=== PATIENT | female | born 1975 | race American Indian/Alaskan Native ===

== ENCOUNTER 2016-11-04 17:47 | Emergency (ER) | payer MEDICAID ==
[2016-11-04 18:01] VITALS: BMI 40.3
[2016-11-04 18:07] VITALS: TEMP 98.7
[2016-11-04] MEDS ORDERED: Sodium Chloride 0.9% 500 ML IV STA (18:42)
[2016-11-04] MEDS ORDERED: DiphenhydrAMINE 50 mg/ml Inj IVP STA (18:43)
[2016-11-04 19:56] LABS: BASO # 0.02 K/mm3 (0.0-2.0); BASO % 0.3 % (0.0-3.0); EOS # 0.1 (0.0-0.7); EOS % 1.7 % (1.5-5.0); GRAN # 2.56 (1.4-6.5); GRAN % 37.1 % (50.0-68.0); HEMOGLOBIN 11.7 gm/dL (12.0-16.0); LYMPH # 3.9 (1.2-3.4); LYMPH % 55.6 % (22.0-35.0); MEAN CELL VOLUME 87.5 fL (80.0-105.0); MEAN CORPUSCULAR HEMOGLOBIN 27.7 pg (25.0-35.0); MEAN CORPUSCULAR HGB CONC 31.6 g/dl (31.0-37.0); MEAN PLATELET VOLUME 9.4 fl (7.0-11.0); MONO # 0.4 (0.1-0.6); MONO % 5.3 % (1.0-6.0); PLATELET COUNT 381 10^3/uL (120.0-450.0); RBC 4.23 10^6/uL (3.5-6.1); RED CELL DISTRIBUTION WIDTH 14.8 % (11.5-14.5); WHITE BLOOD COUNT 6.9 10^3/ul (4.5-11.0)
[2016-11-04 19:59] LABS: ALB/GLOB RATIO 1.1 (1.1-1.8); ALBUMIN 4.2 g/dL (3.0-4.8); ALT/SGPT 27 U/L (7-56); AST/SGOT 35 U/L (15-39); BLOOD UREA NITROGEN 10 mg/dL (7-21); CALCIUM 9.2 mg/dL (8.4-10.5); GFR AFRICAN-AMERICAN > 60; GFR NON-AFRICAN AMERICAN > 60
[2016-11-04] MEDS ORDERED: Potassium Chloride 20 mEq/15 ml LIQ UD PO STA (20:23)
--- NOTE | 2016-11-04 20:32 | ED PDOC ---
Arrival/HPI - General Chief Complaint: Headache Time Seen by Provider: 11/04/16 18:13 Historian: Patient - History of Present Illness Narrative History of Present Illness (Text): 11/04/16 20:23 Patient with past medical history of hypertension and migraine headaches, reports gradual onset of constant throbbing headache to her forehead x 3 days, states that the headache was initially mild however this morning the headache had become more intense, is worse when she bends down and then stands up, reports taking Tylenol with no relief. Patient reports she initially thought that the headache was related to her blood pressure, but reports taking her blood pressure medicine prior to arrival. Patient reports having similar headaches in the past, states that when she typically gets her migraine headache it is usually one sided, which is different with this episode prompting ER visit. She further adds that she was seen at [facility] in the end of August for similar headache, was giving medication however no other diagnostic testing was done. She reports never having any imaging studies of her head. Otherwise: (-) thunderclap headache, (-) worse headache of life, (-) nausea, (-) vomiting, (+) photophobia, (-) phonophobia, (-) URI symptoms, (-) fever, (-) trauma, (-) subjective neurologic symptoms. PMD Travis Past Medical History - Provider Review Nursing Documentation Reviewed: Yes - Infectious Disease Hx of Infectious Diseases: None - Cardiac Hx Cardiac Disorders: Yes Hx Hypertension: Yes - Pulmonary Hx Respiratory Disorders: No - Neurological Hx Neurological Disorder: No - HEENT Hx HEENT Disorder: No - Renal Hx Renal Disorder: No - Endocrine/Metabolic Hx Endocrine Disorders: No - Hematological/Oncological Hx Blood Disorders: No - Integumentary Hx Dermatological Disorder: No - Musculoskeletal/Rheumatological Hx Musculoskeletal Disorders: No - Gastrointestinal Hx Gastrointestinal Disorders: No - Genitourinary/Gynecological Hx Genitourinary Disorders: No - Psychiatric Hx Psychophysiologic Disorder: No Hx Substance Use: No - Surgical History Hx Orthopedic Surgery: Yes - Anesthesia Hx Anesthesia: No - Suicidal Assessment Feels Threatened In Home Enviroment: No Family/Social History - Physician Review Nursing Documentation Reviewed: Yes Family/Social History: No Known Family HX Smoking Status: Never Smoked Hx Alcohol Use: Yes Hx Substance Use: No Allergies/Home Meds Allergies/Adverse Reactions: Allergies No Known Allergies Allergy (Verified 11/04/16 18:01) Home Medications: Home Meds Medication Instructions Recorded Confirmed Hydrochlorothiazide [HCTZ] 25 mg PO DAILY 08/01/15 11/04/16 amLODIPine [Norvasc] 10 mg PO DAILY 03/27/16 11/04/16 Review of Systems - Review of Systems Constitutional: Normal. absent: Fatigue, Weight Change, Fevers Respiratory: Normal. absent: SOB, Cough, Sputum Cardiovascular: Normal. absent: Chest Pain, Palpitations, Edema Gastrointestinal: Normal. absent: Abdominal Pain, Stool Changes, Appetite Changes Musculoskeletal: Normal. absent: Arthralgias, Back Pain, Neck Pain Skin: Normal. absent: Rash, Pruritis, Skin Lesions Neurological: Normal, Headache. absent: Dizziness, Focal Weakness Physical Exam - Physical Exam Narrative Physical Exam (Text): 11/04/16 20:32 GENERAL APPEARANCE: Patient is awake, alert, oriented x 3, in mild painful distress. SKIN: Warm, dry; (-) cyanosis; (-) rash. HEAD: (-) scalp swelling or tenderness, (-) temporal artery tenderness. EYES: (-) conjunctival pallor, (-) scleral icterus. ENMT: (-) sinus tenderness; mucous membranes moist. NECK: (-) tenderness, (-) stiffness, (-) meningismus, (-) lymphadenopathy. CHEST AND RESPIRATORY: (-) rales, (-) rhonchi, (-) wheezes; breath sounds equal bilaterally. HEART AND CARDIOVASCULAR: (-) irregularity; (-) murmur, (-) gallop. ABDOMEN AND GI: Soft; (-) tenderness. EXTREMITIES: (-) deformity. NEURO AND PSYCH: Mental status as above. 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 Strength and DTRs symmetric. Babinski normal bilaterally. Vital Signs Temp Pulse Resp BP Pulse Ox 11/04/16 19:15 93 H 18 147/91 H 99 11/04/16 19:12 78 18 156/65 H 99 11/04/16 18:05 98.7 F 76 16 144/101 H 98 Medical Decision Making ED Course and Treatment: 11/04/16 20:33 41 yo F w/ past medical history of hypertension and migraine headaches, reports gradual onset of constant throbbing headache to her forehead x 3 days. Plan: -- Labs -- IV fluids -- Beta Quant -- Reglan IV / Benadryl IV -- Reassess and disposition -- CT HEAD WITHOUT CONTRAST 11/04/16 20:10 On reevaluation, the patient is laying in bed in no acute distress, patient reports that her headache is improving. Lab results reviewed. Patient still pending CT head. 11/04/16 21:45 CT head results reviewed and shows no acute findings. CT results discussed with the patient in great detail. On reevaluation, patient remains awake, alert, oriented 3. Repeat neurologic exam shows no acute focal findings. Patient reports significant resolution of her headache. Based on history, exam and diagnostic results plan will be for outpatient follow-up with PMD. Patient advised to follow up with her primary care physician in 1-2 days without fail. Advised to take medication as prescribed. Return to the emergency room at any time for any new or worsening symptoms.Patient states she fully agrees with and understands discharge instructions. States that she agrees with the plan and disposition. Verbalized and repeated discharge instructions and plan. I have given the patient opportunity to ask any additional questions. - Lab Interpretations Lab Results: 11/04/16 19:00 11/04/16 19:00 Lab Results 11/04/16 19:00: Beta HCG, Quant < 2.39 11/04/16 19:00: Sodium 139, Potassium 3.1 L, Chloride 102, Carbon Dioxide 25, Anion Gap 15, BUN 10, Creatinine 0.9, Est GFR ( Amer) > 60, Est GFR (Non- Af Amer) > 60, Random Glucose 107, Calcium 9.2, Total Bilirubin 0.6, AST 35, ALT 27, Alkaline Phosphatase 55, Total Protein 8.1, Albumin 4.2, Globulin 3.9, Albumin/Globulin Ratio 1.1 11/04/16 19:00: WBC 6.9, RBC 4.23, Hgb 11.7 L, Hct 37.0, MCV 87.5, MCH 27.7, MCHC 31.6, RDW 14.8 H, Plt Count 381, MPV 9.4, Gran % 37.1 L, Lymph % (Auto) 55.6 H, Pine % (Auto) 5.3, Eos % (Auto) 1.7, Baso % (Auto) 0.3, Gran # 2.56, Lymph # 3.9 H, Pine # 0.4, Eos # 0.1, Baso # 0.02 I have reviewed the lab results: Yes (K 3.1 Pt given Kcl 40 mEq Po) - RAD Interpretation Narrative RAD Interpretations (Text): 11/04/16 22:24 CT head w/o contrast: FINDINGS: Brain: No intracranial hemorrhage. No mass. No definite edema. Ventricles: No hydrocephalus. Bones/joints: No acute fracture. Soft tissues: Unremarkable. Sinuses: No acute sinusitis. Mastoid air cells: No mastoid effusion. Orbits: Unremarkable as visualized. IMPRESSION: 1. No acute intracranial abnormality. Dictated and Authenticated by: Renzo Mondragon MD 11/04/2016 9:40 PM Eastern Time ([place] & [place]) Radiology Orders: 11/04/16 19:26 HEAD W/O CONTRAST [CT] Stat - Medication Orders Current Medication Orders: Discontinued Medications Diphenhydramine HCl (Benadryl) 25 mg IVP STAT STA Stop: 11/04/16 18:44 Last Admin: 11/04/16 19:42 Dose: 25 mg Sodium Chloride (Sodium Chloride 0.9%) 500 mls @ 1,000 mls/hr IV .Q30M STA Stop: 11/04/16 19:11 Last Admin: 11/04/16 19:43 Dose: 1,000 mls/hr Metoclopramide HCl (Reglan) 10 mg IVP STAT STA Stop: 11/04/16 18:43 Last Admin: 11/04/16 19:42 Dose: 10 mg Potassium Chloride (Potassium Chloride Oral Soln) 40 meq PO STAT STA Stop: 11/04/16 20:24 Last Admin: 11/04/16 21:43 Dose: 40 meq - PA / 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 Disposition/Present on Arrival - Present on Arrival Any Indicators Present on Arrival: No History of DVT/PE: No History of Uncontrolled Diabetes: No Urinary Catheter: No History of Decub. Ulcer: No History Surgical Site Infection Following: None - Disposition Have Diagnosis and Disposition been Completed?: Yes Diagnosis: Headache Disposition: HOME/ ROUTINE Disposition Time: 22:00 Patient Plan: Discharge Patient Problems: Current Active Problems Problem Status Onset Headache Acute Condition: IMPROVED Discharge Instructions (ExitCare): Acute Headache (ED) Print Language: MOHAWK Additional Instructions: Thank you for letting us take care of you today. You were treated for headache. The emergency medical care you received today was directed at your acute symptoms. If you were prescribed any medication, please fill it and take as directed. It may take several days for your symptoms to resolve. Return to the Emergency Department if your symptoms worsen, do not improve, or if you have any other problems. Please contact your doctor in 2 days for re-evaluation and follow up. Bring any paperwork you were given at discharge with you along with any medications you are taking to your follow up visit. Our treatment cannot replace ongoing medical care by a primary care provider (PCP) outside of the emergency department. Thank you for allowing the [facility] team to be part of your care today. Prescriptions: Metoclopramide HCl [Reglan] 10 mg PO QID PRN #20 tablet PRN Reason: Headache Forms: [employer] (Azeri), WORK NOTE
--- NOTE | 2016-11-04 21:41 | CT ---
EXAM: CT Head Without Intravenous Contrast CLINICAL HISTORY: 41 years old, female; Pain; Headache TECHNIQUE: Axial computed tomography images of the head/brain without intravenous contrast. This CT exam was performed using one or more of the following dose reduction techniques: automated exposure control, adjustment of the mA and/or kV according to patient size, and/or use of iterative reconstruction technique. COMPARISON: No relevant prior studies available. FINDINGS: Brain: No intracranial hemorrhage. No mass. No definite edema. Ventricles: No hydrocephalus. Bones/joints: No acute fracture. Soft tissues: Unremarkable. Sinuses: No acute sinusitis. Mastoid air cells: No mastoid effusion. Orbits: Unremarkable as visualized. IMPRESSION: 1. No acute intracranial abnormality.
[2016-11-04 23:03] VITALS: BP 145/89; PULSE 89; RESP 17; O2SAT 100
== END 2016-11-04 23:03 | disposition home or self-care (01) ==
LOC: ED 17:47
DX: R51 Headache (principal)
CPT/HCPCS: 70450; 80053; 84702; 85025; 96374; 96375; 99285; J1200; J2765; J7040

== ENCOUNTER 2017-04-10 18:23 | Emergency (ER) | payer MEDICAID ==
[2017-04-10 18:24] VITALS: BMI 40.3
[2017-04-10 18:46] VITALS: RESP 16; O2SAT 100
--- NOTE | 2017-04-10 20:13 | ED PDOC ---
Arrival/HPI - General Chief Complaint: Headache Time Seen by Provider: 04/10/17 19:28 Historian: Patient - History of Present Illness Narrative History of Present Illness (Text): 04/10/17 20:12 A 41 year old female, whose past medical history includes hypertension, presents to the emergency department complaining of a slight headache located on the top of her head since today. Patient reports her blood pressure elevated while at home; she notes 150 systolic. Patient denies any dizziness, visual changes, neck pain, fever, chills, nausea, vomiting, abdominal pain, back pain, chest pain, shortness of breath, cough or any other complaints. PMD: Dr. Mendoza Time/Duration: Other (today) Symptom Course: Unchanged Quality: Other Context: Home Past Medical History - Provider Review Nursing Documentation Reviewed: Yes - Infectious Disease Hx of Infectious Diseases: None - Reproductive Menopause: No - Cardiac Hx Cardiac Disorders: Yes Hx Hypertension: Yes - Pulmonary Hx Respiratory Disorders: No - Neurological Hx Neurological Disorder: No - HEENT Hx HEENT Disorder: No - Renal Hx Renal Disorder: No - Endocrine/Metabolic Hx Endocrine Disorders: No - Hematological/Oncological Hx Blood Disorders: No - Integumentary Hx Dermatological Disorder: No - Musculoskeletal/Rheumatological Hx Musculoskeletal Disorders: No - Gastrointestinal Hx Gastrointestinal Disorders: No - Genitourinary/Gynecological Hx Genitourinary Disorders: No - Psychiatric Hx Psychophysiologic Disorder: No Hx Substance Use: No - Surgical History Hx Orthopedic Surgery: Yes - Anesthesia Hx Anesthesia: No - Suicidal Assessment Feels Threatened In Home Enviroment: No Family/Social History - Physician Review Nursing Documentation Reviewed: Yes Family/Social History: No Known Family HX Smoking Status: Never Smoked Hx Alcohol Use: Yes Hx Substance Use: No Allergies/Home Meds Allergies/Adverse Reactions: Allergies No Known Allergies Allergy (Verified 04/10/17 18:46) Home Medications: Home Meds Medication Instructions Recorded Confirmed Hydrochlorothiazide [HCTZ] 25 mg PO DAILY 08/01/15 04/10/17 amLODIPine [Norvasc] 10 mg PO DAILY 03/27/16 04/10/17 Review of Systems - Physician Review All systems were reviewed & negative as marked: Yes - Review of Systems Constitutional: absent: Fevers, Night Sweats Eyes: absent: Vision Changes Respiratory: absent: SOB, Cough Cardiovascular: absent: Chest Pain Gastrointestinal: absent: Abdominal Pain, Nausea, Vomiting Musculoskeletal: absent: Back Pain, Neck Pain Neurological: Headache. absent: Dizziness Physical Exam Vital Signs Reviewed: Yes Vital Signs Temp Pulse Resp BP Pulse Ox 04/10/17 19:57 134/85 04/10/17 18:42 98.9 F 72 16 154/115 H 100 Temperature: Afebrile Blood Pressure: Hypertensive Pulse: Regular Respiratory Rate: Normal Appearance: Positive for: Well-Appearing, Non-Toxic, Comfortable Pain Distress: None Mental Status: Positive for: Alert and Oriented X 3 - Systems Exam Head: Present: Atraumatic, Normocephalic Pupils: Present: PERRL Extroacular Muscles: Present: EOMI Conjunctiva: Present: Normal Ears: Present: NORMAL TM Mouth: Present: Moist Mucous Membranes Pharnyx: Present: Normal Neck: Present: Normal Range of Motion. No: Meningeal Signs Respiratory/Chest: Present: Clear to Auscultation, Good Air Exchange. No: Respiratory Distress, Accessory Muscle Use Cardiovascular: Present: Regular Rate and Rhythm, Normal S1, S2. No: Murmurs Abdomen: Present: Normal Bowel Sounds. No: Tenderness, Distention, Peritoneal Signs Back: Present: Normal Inspection Upper Extremity: Present: Normal Inspection. No: Cyanosis, Edema Lower Extremity: Present: Normal Inspection. No: Edema Neurological: Present: GCS=15, CN II-XII Intact, Speech Normal, Motor Func Grossly Intact, Normal Sensory Function Skin: Present: Warm, Dry, Normal Color. No: Rashes Psychiatric: Present: Alert, Oriented x 3, Normal Insight, Normal Concentration Medical Decision Making ED Course and Treatment: 04/10/17 20:12 Impression: A 41 year old female with a headache Plan: -- Motrin -- Reassess and disposition Progress Notes: 04/10/17 21:49 Pt. with headache relief following treatment in ED. - Medication Orders Current Medication Orders: Discontinued Medications Ibuprofen (Motrin Tab) 600 mg PO STAT STA Stop: 04/10/17 19:38 Last Admin: 04/10/17 19:55 Dose: 600 mg MAR Pain/Vitals Document 04/10/17 19:55 AB (Rec: 04/10/17 19:56 AB [facility]-[id number]) Pain Reassessment Is This A Pain ReAssessment? Yes Sleep Is patient sleeping during reassessment? No Presence of Pain Presence of Pain Yes Pain Scale Used Pain Scale Used Numeric - Scribe Statement The provider has reviewed the documentation as recorded by the Scribe Diamante Meyer Provider Scribe Attestation: All medical record entries made by the Scribe were at my direction and personally dictated by me. I have reviewed the chart and agree that the record accurately reflects my personal performance of the history, physical exam, medical decision making, and the department course for this patient. I have also personally directed, reviewed, and agree with the discharge instructions and disposition. Disposition/Present on Arrival - Present on Arrival Any Indicators Present on Arrival: No History of DVT/PE: No History of Uncontrolled Diabetes: No Urinary Catheter: No History of Decub. Ulcer: No History Surgical Site Infection Following: None - Disposition Have Diagnosis and Disposition been Completed?: Yes Diagnosis: Headache Disposition: HOME/ ROUTINE Disposition Time: 21:48 Patient Plan: Discharge Condition: STABLE Discharge Instructions (ExitCare): Tension Headache (ED) Additional Instructions: Rest/advil as directed/follow up with your doctor this week Referrals: Freddie Robles MD [Primary Care Provider] - Follow up with primary Forms: [employer] (Comoran)
[2017-04-10 22:12] VITALS: BP 130/80; PULSE 80; TEMP 97.9
== END 2017-04-10 22:13 | disposition home or self-care (01) ==
LOC: ED 18:23
DX: R51 Headache (principal); I10 Essential (primary) hypertension

== ENCOUNTER 2017-05-30 22:28 | Emergency (ER) | payer OTHER, MEDICAID ==
[2017-05-30 22:30] VITALS: BMI 39.4
[2017-05-30 22:31] VITALS: BP 148/89; TEMP 97.9; O2SAT 99
[2017-05-30 22:37] VITALS: PULSE 84; RESP 18
--- NOTE | 2017-05-30 22:57 | ED PDOC ---
Arrival/HPI - General Chief Complaint: Dizziness/Lightheaded Time Seen by Provider: 05/30/17 22:40 Historian: Patient - History of Present Illness Narrative History of Present Illness (Text): 05/30/17 22:54 41yo female with history of anxiety who present with complaint of anxiety. She reports dizziness, palpitations and anxious. States these are her symptoms with anxiety. She states she was on Xanax un till few months ago. States she threw out the medication because she didn't think she needs it. She tried to get the prescription yesterday, but she was told to see her PMD physically for the prescription. she is also requesting a test. states her LMP was in April. Denies fever, abdominal pain, chest pain, nausea, vomiting, any other complaint. Past Medical History - Provider Review Nursing Documentation Reviewed: Yes - Infectious Disease Hx of Infectious Diseases: None - Cardiac Hx Cardiac Disorders: Yes Hx Hypertension: Yes - Pulmonary Hx Respiratory Disorders: No - Neurological Hx Neurological Disorder: No - HEENT Hx HEENT Disorder: No - Renal Hx Renal Disorder: No - Endocrine/Metabolic Hx Endocrine Disorders: No - Hematological/Oncological Hx Blood Disorders: No - Integumentary Hx Dermatological Disorder: No - Musculoskeletal/Rheumatological Hx Musculoskeletal Disorders: No - Gastrointestinal Hx Gastrointestinal Disorders: No - Genitourinary/Gynecological Hx Genitourinary Disorders: No - Psychiatric Hx Psychophysiologic Disorder: No Hx Substance Use: No - Surgical History Hx Orthopedic Surgery: Yes - Anesthesia Hx Anesthesia: No - Suicidal Assessment Feels Threatened In Home Enviroment: No Family/Social History - Physician Review Nursing Documentation Reviewed: Yes Family/Social History: Unknown Family HX Smoking Status: Never Smoked Hx Alcohol Use: Yes Hx Substance Use: No Allergies/Home Meds Allergies/Adverse Reactions: Allergies No Known Allergies Allergy (Verified 05/30/17 22:30) Home Medications: Home Meds Medication Instructions Recorded Confirmed Hydrochlorothiazide [HCTZ] 25 mg PO DAILY 08/01/15 05/30/17 amLODIPine [Norvasc] 10 mg PO DAILY 03/27/16 05/30/17 Review of Systems - Physician Review All systems were reviewed & negative as marked: Yes - Review of Systems Constitutional: Normal Eyes: Normal ENT: Normal Respiratory: Normal Cardiovascular: Palpitations Gastrointestinal: Normal Genitourinary Female: Normal Musculoskeletal: Normal Skin: Normal Neurological: Normal Endocrine: Normal Hemo/Lymphatic: Normal Psychiatric: Anxiety Physical Exam Vital Signs Reviewed: Yes Vital Signs Temp Pulse Resp BP Pulse Ox 05/30/17 22:33 97.9 F 84 18 148/89 99 05/30/17 22:30 97.9 F 85 20 148/89 99 Temperature: Afebrile Blood Pressure: Normal Pulse: Regular Respiratory Rate: Normal Appearance: Positive for: Well-Appearing, Non-Toxic, Comfortable Pain Distress: None Mental Status: Positive for: Alert and Oriented X 3 Finger Stick Blood Glucose: 101 - Systems Exam Head: Present: Atraumatic, Normocephalic Pupils: Present: PERRL Extroacular Muscles: Present: EOMI Conjunctiva: Present: Normal Mouth: Present: Moist Mucous Membranes Neck: Present: Normal Range of Motion Respiratory/Chest: Present: Clear to Auscultation, Good Air Exchange. No: Respiratory Distress, Accessory Muscle Use Cardiovascular: Present: Regular Rate and Rhythm, Normal S1, S2. No: Murmurs Abdomen: Present: Normal Bowel Sounds. No: Tenderness, Distention, Peritoneal Signs Back: Present: Normal Inspection Upper Extremity: Present: Normal Inspection. No: Cyanosis, Edema Lower Extremity: Present: Normal Inspection. No: Edema Neurological: Present: GCS=15, CN II-XII Intact, Speech Normal Skin: Present: Warm, Dry, Normal Color. No: Rashes Psychiatric: Present: Alert, Oriented x 3, Normal Insight, Normal Concentration Medical Decision Making ED Course and Treatment: 05/30/17 23:10 PT was comfortable in ED. Her Upreg was negative. Result was DW the pt. She was advised that she will not be given anxiolytics at this time. She was referred to her PMD/OB. Disposition/Present on Arrival - Present on Arrival Any Indicators Present on Arrival: No History of DVT/PE: No History of Uncontrolled Diabetes: No Urinary Catheter: No History of Decub. Ulcer: No History Surgical Site Infection Following: None - Disposition Have Diagnosis and Disposition been Completed?: Yes Diagnosis: , Anxiety Disposition: HOME/ ROUTINE Disposition Time: 23:00 Patient Plan: Discharge Patient Problems: Current Active Problems Problem Status Onset Anxiety Acute Acute Condition: STABLE Discharge Instructions (ExitCare): Anxiety, Adult (DC) Additional Instructions: Follow up with your Doctor/OB Return to ED for any new symptoms Referrals: Freddie Robles MD [Primary Care Provider] - Follow up with primary Forms: [employer] (Mexican)
== END 2017-05-30 23:08 | disposition home or self-care (01) ==
LOC: ED 22:28
DX: O99.340 Other mental disorders complicating pregnancy, unspecified trimester (principal); F41.9 Anxiety disorder, unspecified; Z3A.00 Weeks of gestation of pregnancy not specified

== ENCOUNTER 2017-10-07 23:46 | Emergency (ER) | payer MEDICAID, OTHER ==
[2017-10-07 23:56] VITALS: TEMP 98.9; BMI 38.7
--- NOTE | 2017-10-08 00:11 | ED PDOC ---
Arrival/HPI - General Historian: Patient - History of Present Illness Time/Duration: 1-3 hours Symptom Onset: Sudden Activities at Onset: Rest Context: Home - General Time Seen by Provider: 10/07/17 23:55 - History of Present Illness Narrative History of Present Illness (Text): 10/08/17 00:16 This is a 42 year old female with PMH of HT and anxiety presenting to the ED for palpitations and fast heart rate 2 hours ago. Symptoms woke patient up from sleep and is associated with mild SOB. Patient had gariatric bariatric sleeve surgury last week on October 01 and has been on a liquid diet since then. Patient denies having similar symptoms in past. Heart rate is 101. Well's score is currently 3. Denies chest pain, headaches, abdominal pain, fevers and chills. ( Evonne Shields) Past Medical History - Provider Review Nursing Documentation Reviewed: Yes - Infectious Disease Hx of Infectious Diseases: None - Cardiac Hx Cardiac Disorders: Yes Hx Hypertension: Yes - Pulmonary Hx Respiratory Disorders: No - Neurological Hx Neurological Disorder: No - HEENT Hx HEENT Disorder: No - Renal Hx Renal Disorder: No - Endocrine/Metabolic Hx Endocrine Disorders: No - Hematological/Oncological Hx Blood Disorders: No - Integumentary Hx Dermatological Disorder: No - Musculoskeletal/Rheumatological Hx Musculoskeletal Disorders: No - Gastrointestinal Hx Gastrointestinal Disorders: No - Genitourinary/Gynecological Hx Genitourinary Disorders: No - Psychiatric Hx Psychophysiologic Disorder: No Hx Substance Use: No - Surgical History Hx Orthopedic Surgery: Yes - Anesthesia Hx Anesthesia: No - Suicidal Assessment Feels Threatened In Home Enviroment: No Family/Social History - Physician Review Nursing Documentation Reviewed: Yes Family/Social History: Unknown Family HX Smoking Status: Never Smoked Hx Alcohol Use: Yes Hx Substance Use: No Allergies/Home Meds Allergies/Adverse Reactions: Allergies No Known Allergies Allergy (Verified 10/07/17 23:55) Home Medications: Home Meds Medication Instructions Recorded Confirmed amLODIPine [Norvasc] 5 mg PO DAILY 03/27/16 10/07/17 Acetaminophen/Codeine 1 tsp PO Q6H PRN 10/07/17 10/07/17 [Tylenol/Codeine elixir] Sucralfate [Carafate Oral Susp] 10 ml PO BID PRN 10/07/17 10/07/17 Ursodiol [Actigall] 300 mg PO BID 10/07/17 10/07/17 Review of Systems - Physician Review All systems were reviewed & negative as marked: Yes - Review of Systems Constitutional: Normal Eyes: Normal ENT: Normal Respiratory: Normal, SOB. absent: Cough Cardiovascular: Chest Pain, Palpitations. absent: Edema, Syncope Gastrointestinal: Normal Genitourinary Female: Normal Musculoskeletal: Normal Skin: Normal Neurological: Normal Endocrine: Normal Hemo/Lymphatic: Normal Psychiatric: Normal. absent: Anxiety Physical Exam Vital Signs Reviewed: Yes Temperature: Afebrile Blood Pressure: Hypertensive Pulse: Tachycardic Respiratory Rate: Normal Appearance: Positive for: Well-Appearing, Non-Toxic, Comfortable Pain Distress: None Mental Status: Positive for: Alert and Oriented X 3 - Systems Exam Head: Present: Atraumatic, Normocephalic Pupils: Present: PERRL Extroacular Muscles: Present: EOMI Conjunctiva: Present: Normal Mouth: Present: Moist Mucous Membranes Neck: Present: Normal Range of Motion Respiratory/Chest: Present: Clear to Auscultation, Good Air Exchange. No: Respiratory Distress, Accessory Muscle Use Cardiovascular: Present: Normal S1, S2, Peripheal Pulses Present, Tachycardic. No: Murmurs, Irregular Rhythm Abdomen: No: Tenderness, Distention, Peritoneal Signs Back: Present: Normal Inspection Upper Extremity: Present: Normal Inspection. No: Cyanosis, Edema Lower Extremity: Present: Normal Inspection. No: Edema Neurological: Present: Speech Normal, Motor Func Grossly Intact, Normal Sensory Function Skin: Present: Warm, Dry, Normal Color. No: Rashes Psychiatric: Present: Alert, Oriented x 3, Normal Insight, Normal Concentration Vital Signs Temp Pulse Resp BP Pulse Ox 10/08/17 03:10 85 18 117/73 100 10/08/17 02:10 85 17 115/67 100 10/07/17 23:55 98.9 F 101 H 21 155/88 H 97 Medical Decision Making ED Course and Treatment: Impression: Pt seen and evaluated with chief medical physicist. Aware and agree with HPI, clinical findings, plan, and management. Pt, whose past medical history includes recent gastric sleeve on 10/01/17, hypertension and anxiety, presented for palpitations rapid heart rate, and mild shortness of breath tonight. Plan: -- EKG -- Labs, troponin, D-dimer -- Reassess and disposition (Otis Martinez) 10/08/17 00:22 Impression: This is a 42 year old female with PMH of anxiety presenting to the ER for palpitations and SOB that began 2 hours ago. Plan: -EKG -CBC, CMP -Troponins, D-dimer Progress: EKG: rate of 96, normal sinus rhythm, pr interval of 154, QRS 82ms. 10/08/17 01:20 D-dimer is elevated, CTA ordered. 10/08/17 04:19 CTA is negative for PE. Patient is resting comfortably and has no complaints at this time. Vitals are stable. (Evonne Shields) - Lab Interpretations Lab Results: 10/08/17 00:23 10/08/17 00:23 Lab Results 10/08/17 00:35: D-Dimer, Quantitative 2847 H 10/08/17 00:23: Sodium 140, Potassium 3.6, Chloride 104, Carbon Dioxide 21, Anion Gap 20, BUN 17, Creatinine 0.9, Est GFR ( Amer) > 60, Est GFR (Non- Af Amer) > 60, Random Glucose 94, Calcium 9.3, Total Bilirubin 2.0 H, AST 33, ALT 60 H, Alkaline Phosphatase 63, Troponin I < 0.01, Total Protein 8.4 H, Albumin 4.4, Globulin 4.0, Albumin/Globulin Ratio 1.1 10/08/17 00:23: WBC 9.3 D, RBC 4.55, Hgb 12.7, Hct 37.7, MCV 82.9, MCH 27.9, MCHC 33.7, RDW 14.7 H, Plt Count 395, MPV 9.3, Gran % 41.6 L, Lymph % (Auto) 49.0 H, [place] % (Auto) 7.2 H, Eos % (Auto) 2.0, Baso % (Auto) 0.2, Gran # 3.86, Lymph # (Auto) 4.6 H, [place] # (Auto) 0.7 H, Eos # (Auto) 0.2, Baso # (Auto) 0.02 - RAD Interpretation Radiology Orders: 10/08/17 01:14 ANGIO CHEST PE PROTOCOL [CT] Stat - Medication Orders Current Medication Orders: Discontinued Medications Lorazepam (Ativan) 2 mg IVP ONCE ONE PRN Reason: Protocol Stop: 10/08/17 01:37 Last Admin: 10/08/17 01:44 Dose: 2 mg IVP Administration Document 10/08/17 01:44 CNR (Rec: 10/08/17 01:44 CNR [id number]) Charges for Administration # of IVP Administrations 1 Wells Criteria for PE - Wells Criteria for Pulmonary Embolism Clinical Signs and Symptoms of DVT: No P.E is #1 Diagnosis, or Equally Likely: No Heart Rate >100: Yes Immobilization at least 3 days;Surgery previous 4 weeks: Yes Previous, objectively diagnosed PE or DVT: No Hemoptysis: No Malignancy w/treatment within 6 months, or palliative: No Total Score: 3.0 - PA / OILING MACHINE OPERATOR / Resident Statement MD/DO has reviewed & agrees with the documentation as recorded. MD/DO has examined the patient and agrees with the treatment plan. Disposition/Present on Arrival - Present on Arrival Any Indicators Present on Arrival: No History of DVT/PE: No History of Uncontrolled Diabetes: No Urinary Catheter: No History of Decub. Ulcer: No History Surgical Site Infection Following: None - Disposition Have Diagnosis and Disposition been Completed?: Yes Disposition Time: 04:30 Patient Plan: Discharge - Disposition Diagnosis: Palpitations Disposition: HOME/ ROUTINE Condition: GOOD Discharge Instructions (ExitCare): Palpitations (DC) Additional Instructions: Follow up with primary care doctor
[2017-10-08 00:44] LABS: ALB/GLOB RATIO 1.1 (1.1-1.8); ALBUMIN 4.4 g/dL (3.0-4.8); ALT/SGPT 60 U/L (7-56); AST/SGOT 33 U/L (14-36); BASO # 0.02 K/mm3 (0.0-2.0); BASO % 0.2 % (0.0-3.0); BLOOD UREA NITROGEN 17 mg/dL (7-21); CALCIUM 9.3 mg/dL (8.4-10.5); EOS # 0.2 (0.0-0.7); GFR AFRICAN-AMERICAN > 60; GFR NON-AFRICAN AMERICAN > 60; GRAN # 3.86 (1.4-6.5); GRAN % 41.6 % (50.0-68.0); HEMOGLOBIN 12.7 g/dL (12.0-16.0); LYMPH # 4.6 (1.2-3.4); MEAN CELL VOLUME 82.9 fl (80.0-105.0); MEAN CORPUSCULAR HEMOGLOBIN 27.9 pg (25.0-35.0); MEAN CORPUSCULAR HGB CONC 33.7 g/dl (31.0-37.0); MEAN PLATELET VOLUME 9.3 fl (7.0-11.0); MONO # 0.7 (0.1-0.6); MONO % 7.2 % (1.0-6.0); RBC 4.55 10^6/uL (3.5-6.1); RED CELL DISTRIBUTION WIDTH 14.7 % (11.5-14.5); WHITE BLOOD COUNT 9.3 10^3/ul (4.5-11.0)
[2017-10-08 00:55] LABS: TROPONIN I < 0.01 ng/mL
[2017-10-08] MEDS ORDERED: Iohexol 350 MG/100 ML VIAL ONE (01:22)
[2017-10-08 02:17] VITALS: PULSE 85; O2SAT 100
[2017-10-08 04:49] VITALS: BP 122/78; RESP 17
--- NOTE | 2017-10-08 08:19 | CARD ---
APPROVED REPORT EKG Measurement Heart [id number] <Conclusion> Normal sinus rhythm PRWP, possible due to lead placement Cannot rule out Inferior infarct, age undetermined STTW changes c/w ischemia Prolonged QT
--- NOTE | 2017-10-08 08:50 | CT ---
PROCEDURE: CT Chest with contrast (Pulmonary Angiogram) HISTORY: SOB COMPARISON: None available. TECHNIQUE: Axial computed tomography images were obtained of the chest in the pulmonary arterial phase of enhancement. Coronal and sagittal reformatted images were created and reviewed. Intravenous contrast dose: Radiation dose: Total exam DLP = mGy-cm. This CT exam was performed using one or more of the following dose reduction techniques: Automated exposure control, adjustment of the mA and/or kV according to patient size, and/or use of iterative reconstruction technique. FINDINGS: PULMONARY ARTERIES: Unremarkable. No pulmonary embolism. AORTA: No acute findings. No thoracic aortic aneurysm. LUNGS: Discoid atelectasis in the left lower lobe. PLEURAL SPACES: Unremarkable. No effusion or pneuomothorax. HEART: Unremarkable. No cardiomegaly. No significant pericardial effusion. LYMPH NODES: No lymphadenopathy. BONES, CHEST WALL: Unremarkable. No fracture or destructive lesion OTHER FINDINGS: Unremarkable. IMPRESSION: Discoid atelectasis in the left lower lobe. No pulmonary embolism.
== END 2017-10-08 04:47 | disposition home or self-care (01) ==
LOC: ED 23:46
DX: R00.2 Palpitations (principal); I10 Essential (primary) hypertension; F41.9 Anxiety disorder, unspecified
CPT/HCPCS: 71275; 80053; 84484; 85025; 85378; 93005; 96374; 99285; J2060; Q9967

== ENCOUNTER 2017-11-01 22:31 | Inpatient (IN) | payer OTHER ==
[2017-11-01 22:32] VITALS: BMI 38.7
[2017-11-01] MEDS ORDERED: Sodium Chloride 0.9% 1,000 ML IV STA (23:05)
--- NOTE | 2017-11-01 23:06 | ED PDOC ---
Arrival/HPI <Oscar Murray - Last Filed: 11/02/17 01:40> - General Historian: Patient - History of Present Illness Time/Duration: < week (2 days) Symptom Onset: Gradual Symptom Course: Unchanged Quality: Other (Sharp) Activities at Onset: Light Context: Work <Bj Romero - Last Filed: 11/03/17 01:05> - General Chief Complaint: Abdominal Pain Time Seen by Provider: 11/01/17 23:00 - History of Present Illness Narrative History of Present Illness (Text): 11/01/17 23:05 42 year old female, whose past medical history includes gastritis, gallstones, gastric sleeve surgery on 10/01/2017, who presents to the Emergency department complaining of upper abdominal pain with associated vomiting for 2 days. Patient states pain is sharp in quality and notes she is also vomiting clear fluids, associated with nausea. Patient denies any fever, chills, flank pain, urinary symptoms, chest pain or shortness of breath, numbness, tingling, or any other complaints. (Bj Romero) Past Medical History - Provider Review Nursing Documentation Reviewed: Yes - Infectious Disease Hx of Infectious Diseases: None - Cardiac Hx Cardiac Disorders: Yes Hx Hypertension: Yes - Pulmonary Hx Respiratory Disorders: No - Neurological Hx Neurological Disorder: No - HEENT Hx HEENT Disorder: No - Renal Hx Renal Disorder: No - Endocrine/Metabolic Hx Endocrine Disorders: No - Hematological/Oncological Hx Blood Disorders: No - Integumentary Hx Dermatological Disorder: No - Musculoskeletal/Rheumatological Hx Musculoskeletal Disorders: No - Gastrointestinal Hx Gastrointestinal Disorders: No - Genitourinary/Gynecological Hx Genitourinary Disorders: No - Psychiatric Hx Psychophysiologic Disorder: No Hx Substance Use: No - Surgical History Hx Orthopedic Surgery: Yes - Anesthesia Hx Anesthesia: No - Suicidal Assessment Feels Threatened In Home Enviroment: No <Bj Romero - Last Filed: 11/03/17 01:05> Family/Social History - Physician Review Nursing Documentation Reviewed: Yes Family/Social History: Unknown Family HX Smoking Status: Never Smoked Hx Alcohol Use: Yes Hx Substance Use: No <Bj Romero - Last Filed: 11/03/17 01:05> Allergies/Home Meds <Oscar Murray - Last Filed: 11/02/17 01:40> <Romero,Bj Q - Last Filed: 11/03/17 01:05> Allergies/Adverse Reactions: Allergies No Known Allergies Allergy (Verified 11/01/17 23:03) Home Medications: Home Meds Medication Instructions Recorded Confirmed amLODIPine [Norvasc] 5 mg PO DAILY 03/27/16 11/02/17 Sucralfate [Carafate Oral Susp] 10 ml PO BID PRN 10/07/17 11/02/17 Review of Systems - Physician Review All systems were reviewed & negative as marked: Yes - Review of Systems Constitutional: absent: Fatigue, Fevers Eyes: absent: Vision Changes ENT: absent: Hearing Changes Respiratory: absent: SOB, Cough Cardiovascular: absent: Chest Pain Gastrointestinal: Abdominal Pain, Nausea, Vomiting. absent: Diarrhea Genitourinary Female: absent: Dysuria, Frequency, Hematuria, Urine Output Changes Skin: absent: Rash, Pruritis, Skin Lesions Neurological: absent: Headache, Dizziness Psychiatric: absent: Anxiety, Depression, Suicidal Ideation <Bj Romero Q - Last Filed: 11/03/17 01:05> Physical Exam Vital Signs Reviewed: Yes Temperature: Afebrile Blood Pressure: Normal Pulse: Regular Respiratory Rate: Normal Appearance: Positive for: Well-Appearing, Non-Toxic, Comfortable Pain Distress: None Mental Status: Positive for: Alert and Oriented X 3 - Systems Exam Head: Present: Atraumatic, Normocephalic Pupils: Present: PERRL Extroacular Muscles: Present: EOMI Conjunctiva: Present: Normal Mouth: Present: Moist Mucous Membranes Neck: Present: Normal Range of Motion Respiratory/Chest: Present: Clear to Auscultation, Good Air Exchange. No: Respiratory Distress, Accessory Muscle Use Cardiovascular: Present: Regular Rate and Rhythm, Normal S1, S2. No: Murmurs Abdomen: Present: Tenderness (Tenderness to upper abdominal area, specifically to epigastric region). No: Distention, Peritoneal Signs, Rebound, Guarding Back: Present: CVA Tenderness. No: Midline Tenderness, Paraspinal Tenderness Upper Extremity: Present: Normal Inspection, Capillary Refill < 2s. No: Cyanosis, Edema, Tenderness, Swelling, Deformity Lower Extremity: Present: Normal Inspection, NORMAL PULSES, Normal ROM, Neurovascularly Intact, Capillary Refill < 2 s. No: Edema, Cyanosis, Deformity Neurological: Present: GCS=15, CN II-XII Intact, Speech Normal, Motor Func Grossly Intact, Gait Normal, Memory Normal Skin: Present: Warm, Dry, Normal Color. No: Rashes Psychiatric: Present: Alert, Oriented x 3, Normal Insight, Normal Concentration <Bj Romero - Last Filed: 11/03/17 01:05> Vital Signs Temp Pulse Resp BP Pulse Ox 11/02/17 01:28 98.1 F 87 18 159/97 H 98 Medical Decision Making <Oscar Murray - Last Filed: 11/02/17 01:40> - Lab Interpretations I have reviewed the lab results: Yes - RAD Interpretation Evaluator Transfer Students: Radiologist <Bj Romero - Last Filed: 11/03/17 01:05> ED Course and Treatment: 11/01/17 23:05 Impression: 42 year old female complaining of upper abdominal pain and vomiting x 2 days. Plan: -- CT Abdomen and Pelvis -- US Gallbladder -- Labs -- Urinalysis -- IV fluids -- Pepcid -- Reglan -- Reassess and disposition 11/02/17 00:10 -Pt. is claustrophobic, request ativan prior to CT, ativan 2mg IV ordered. 11/02/17 01:28 -urine hcg is negative -Gallbladder sonogram: no acute sonographyic pathology in the Rt. upper quadrant except mild hepatomegally 17.3cm with echogenic consistent with diffuse fatty liver and rt. renal cyst -CT Abdomen and pelvis: Postoperative changes of gastgric sleeve, small hiatal hernia, multiple uterine fibroids, no other acute CT pathology. -gallbladder sonogram show -Labs show no acute findings except lipase 1198, K+ 3.5 and Mg 1.6 (mgsul 1gm and Kcl 20meq po ordered) -UA show no UTI -Morphine 5mg IV ordered. -PMD is dr. marrero, will page the hospitalist -Paged the medical case worker. 11/02/17 01:47 -I spoke to the medical case worker Dr. Guardado and attending DR. Lim, discussed about the case/labs/radiologist, will admit the patient -Dr. Murray will admit the patient. (Bj Romero) - Lab Interpretations Lab Results: 11/01/17 23:30 11/01/17 23:30 Lab Results 11/01/17 23:30: Urine Color Yellow, Urine Appearance Cloudy, Urine pH 6.0, Ur Specific [place] >= 1.030, Urine Protein 100 H, Urine Glucose (UA) Negative, Urine Ketones >=80, Urine Blood Trace-intact H, Urine Nitrate Negative, Urine Bilirubin Small H, Urine Urobilinogen 1.0 H, Ur Leukocyte Esterase Negative, Urine RBC 0 - 2, Urine WBC 0 - 2, Ur Epithelial Cells Many, Urine Bacteria Mod 11/01/17 23:30: WBC 6.5 D, RBC 4.30, Hgb 11.9 L, Hct 36.5, MCV 84.9, MCH 27.7, MCHC 32.6, RDW 15.7 H, Plt Count 367, MPV 9.1, Gran % 34.6 L, Lymph % (Auto) 56.5 H, [place] % (Auto) 7.2 H, Eos % (Auto) 1.5, Baso % (Auto) 0.2, Gran # 2.26, Lymph # (Auto) 3.7 H, [place] # (Auto) 0.5, Eos # (Auto) 0.1, Baso # (Auto) 0.01 11/01/17 23:30: Sodium 144, Potassium 3.5 L, Chloride 109 H, Carbon Dioxide 24, Anion Gap 15, BUN 11, Creatinine 0.8, Est GFR ( Amer) > 60, Est GFR (Non- Af Amer) > 60, Random Glucose 106, Calcium 9.3, Magnesium 1.6 L, Total Bilirubin 0.9, AST 45 H D, ALT 79 H, Alkaline Phosphatase 53, Total Protein 8.1 , Albumin 4.3, Globulin 3.7, Albumin/Globulin Ratio 1.2, Lipase 1198 H - RAD Interpretation Radiology Orders: 11/01/17 23:05 ABD & PELVIS IV CONTRAST ONLY [CT] Stat GALL BLADDER [US] Stat Gallbladder sonogram: no acute sonographyic pathology in the Rt. upper quadrant except mild hepatomegally 17.3cm with echogenic consistent with diffuse fatty liver and rt. renal cyst CT Abdomen and pelvis: Postoperative changes of gastgric sleeve, small hiatal hernia, multiple uterine fibroids, no other acute CT pathology. (Bj Romero) - Medication Orders Current Medication Orders: Amlodipine Besylate (Norvasc) 5 mg PO DAILY BEE Last Admin: 08/03/18 09:34 Dose: 5 mg MAR Pulse and Blood Pressure Document 11/02/17 09:34 JW (Rec: 11/02/17 09:[address] [id number]) Blood Pressure Blood Pressure (100/60-150/90) 139/80 Heparin Sodium (Porcine) (Heparin) 5,000 units SC Q12 BEE PRN Reason: Protocol Last Admin: 11/02/17 21:27 Dose: 5,000 units Subcutaneous Administrations Document 11/02/17 21:27 RS (Rec: 11/02/17 21:[address] [facility] Charges for Administration # of Subcutaneous Administrations 1 Hydralazine HCl (Apresoline) 10 mg IVP Q6 PRN PRN Reason: Systolic Blood Pressure Lactated Ringer's (Lactated Ringer's) 1,000 mls @ 200 mls/hr IV .Q5H [facility] Last Admin: 11/02/17 11:49 Dose: 200 mls/hr eMAR Start Stop Document 11/02/17 11:49 JW (Rec: 11/02/17 11:50 [id number]) Intravenous Solution Start Date 11/02/17 Start Time 11:50 Morphine Sulfate (Morphine) 2 mg IVP Q4H PRN PRN Reason: Pain, moderate (4-7) Last Admin: 11/02/17 21:28 Dose: 2 mg MAR Pain Assessment Document 11/02/17 21:28 RS (Rec: 11/02/17 21:[address] [facility] Pain Reassessment Is this a pain reassessment? No IVP Administration Document 11/02/17 21:28 RS (Rec: 11/02/17 21:[address] [facility] Charges for Administration # of IVP Administrations 1 Ondansetron HCl (Zofran Inj) 4 mg IVP Q4H PRN PRN Reason: Nausea/Vomiting Last Admin: 11/02/17 09:17 Dose: 4 mg IVP Administration Document 11/02/17 09:17 JW (Rec: 11/02/17 09:[address] [id number]) Charges for Administration # of IVP Administrations 1 Pantoprazole Sodium (Protonix Inj) 40 mg IVP DAILY [facility] Last Admin: 11/02/17 09:20 Dose: Discontinued Medications Famotidine (Pepcid) 20 mg IVP STAT STA Stop: 11/01/17 23:06 Last Admin: 11/01/17 23:32 Dose: 20 mg IVP Administration Document 11/01/17 23:32 AD (Rec: 11/01/17 23:[address] [id number]-[id number]) Charges for Administration # of IVP Administrations 1 Sodium Chloride (Sodium Chloride 0.9%) 1,000 mls @ 999 mls/hr IV .Q1H1M STA Stop: 11/02/17 00:05 Last Admin: 11/01/17 23:30 Dose: 999 mls/hr eMAR Start Stop Document 11/01/17 23:30 AD (Rec: 11/01/17 23:32 AD [id number]) Intravenous Solution Start Date 11/01/17 Start Time 23:32 Sodium Chloride (Sodium Chloride 0.9%) 1,000 mls @ 125 mls/hr IV .Q8H BEE Last Admin: 11/02/17 03:07 Dose: 125 mls/hr eMAR Start Stop Document 11/02/17 03:07 RS (Rec: 11/02/17 03:07 RS [id number]) Intravenous Solution Start Date 11/02/17 Start Time 03:07 Potassium Chloride (Potassium Chloride 10 Meq/100 Ml) 10 meq in 100 mls @ 50 mls/hr IVPB ONCE ONE Stop: 11/02/17 08:52 Last Admin: 11/02/17 09:34 Dose: 50 mls/hr eMAR Start Stop Document 11/02/17 09:34 JW (Rec: 11/02/17 09:34 JW [id number]) Intravenous Solution Start Date 11/02/17 Start Time 09:34 End Date 11/02/17 End time 11:34 Total Infusion Time 120 Magnesium 2 gm/50 ml NS (Magnesium Sulfate 2 Gm/50 Ml Ns) 2 gm in 50 mls @ 50 mls/hr IVPB ONCE ONE Stop: 11/02/17 11:21 Last Admin: 11/02/17 11:49 Dose: 50 mls/hr eMAR Start Stop Document 11/02/17 11:49 JW (Rec: 11/02/17 11:49 JW [id number]) Intravenous Solution Start Date 11/02/17 Start Time 11:49 End Date 11/02/17 End time 12:49 Total Infusion Time 60 Lorazepam (Ativan) 2 mg IVP ONCE ONE PRN Reason: Protocol Stop: 11/02/17 00:10 Last Admin: 11/02/17 00:30 Dose: 2 mg IVP Administration Document 11/02/17 00:30 AD (Rec: 11/02/17 00:32 AD [id number] Charges for Administration # of IVP Administrations 1 Metoclopramide HCl (Reglan) 10 mg IVP STAT STA Stop: 11/01/17 23:06 Last Admin: 11/01/17 23:32 Dose: 10 mg IVP Administration Document 11/01/17 23:32 AD (Rec: 11/01/17 23:[address] [facility]-[id number]) Charges for Administration # of IVP Administrations 1 Morphine Sulfate (Morphine) 5 mg IVP STAT STA Stop: 11/02/17 00:12 Last Admin: 11/02/17 00:30 Dose: 5 mg MAR Pain Assessment Document 11/02/17 00:30 AD (Rec: 11/02/17 01:03 AD [id number]) Pain Reassessment Is this a pain reassessment? No IVP Administration Document 11/02/17 00:30 AD (Rec: 11/02/17 01:03 AD [id number]) Charges for Administration # of IVP Administrations 1 - PA / FIBER TECHNICIAN / Resident Statement MD/DO has reviewed & agrees with the documentation as recorded. MD/DO has examined the patient and agrees with the treatment plan. <Oscar Murray - Last Filed: 11/02/17 01:40> - PA / FIBER TECHNICIAN / Resident Statement / has reviewed & agrees with the documentation as recorded. MD/DO has examined the patient and agrees with the treatment plan. - Scribe Statement The provider has reviewed the documentation as recorded by the Scribe <Bj Romero - Last Filed: 11/03/17 01:05> - Scribe Statement Carolina Laureano All medical record entries made by the Scribe were at my direction and personally dictated by me. I have reviewed the chart and agree that the record accurately reflects my personal performance of the history, physical exam, medical decision making, and the department course for this patient. I have also personally directed, reviewed, and agree with the discharge instructions and disposition. (Bj Romero) Disposition/Present on Arrival <Oscar Murray - Last Filed: 11/02/17 01:40> - Present on Arrival Any Indicators Present on Arrival: No History of DVT/PE: No History of Uncontrolled Diabetes: No Urinary Catheter: No History of Decub. Ulcer: No History Surgical Site Infection Following: None - Disposition Have Diagnosis and Disposition been Completed?: Yes Disposition Time: 00:14 Patient Plan: Admission <Bj Romero - Last Filed: 11/03/17 01:05> - Disposition Diagnosis: Pancreatitis, Hypokalemia, Hypomagnesemia Disposition: HOSPITALIZED Patient Problems: Current Active Problems Problem Status Onset Hypokalemia Acute Hypomagnesemia Acute Pancreatitis Acute Condition: STABLE
[2017-11-01 23:46] LABS: URINE BILIRUBIN SMALL (NEGATIVE); URINE BLOOD TRACE-INTACT (NEGATIVE); URINE GLUCOSE (UA) NEGATIVE (NEGATIVE); URINE LEUKOCYTE ESTERASE NEGATIVE Leu/uL (NEGATIVE); URINE PROTEIN 100 mg/dL (<30 mg/dL)
[2017-11-01 23:47] LABS: BASO # 0.01 K/mm3 (0.0-2.0); BASO % 0.2 % (0.0-3.0); EOS # 0.1 (0.0-0.7); EOS % 1.5 % (1.5-5.0); GRAN # 2.26 (1.4-6.5); GRAN % 34.6 % (50.0-68.0); HEMOGLOBIN 11.9 g/dL (12.0-16.0); LYMPH # 3.7 (1.2-3.4); LYMPH % 56.5 % (22.0-35.0); MEAN CELL VOLUME 84.9 fl (80.0-105.0); MEAN CORPUSCULAR HEMOGLOBIN 27.7 pg (25.0-35.0); MEAN CORPUSCULAR HGB CONC 32.6 g/dl (31.0-37.0); MEAN PLATELET VOLUME 9.1 fl (7.0-11.0); MONO # 0.5 (0.1-0.6); MONO % 7.2 % (1.0-6.0); RBC 4.3 10^6/uL (3.5-6.1); RED CELL DISTRIBUTION WIDTH 15.7 % (11.5-14.5); WHITE BLOOD COUNT 6.5 10^3/ul (4.5-11.0)
[2017-11-01 23:54] LABS: URINE APPEARANCE CLOUDY (CLEAR); URINE COLOR YELLOW (YELLOW)
[2017-11-02] LABS: URINE BACTERIA MOD (NEG); URINE EPITHELIAL CELLS MANY /hpf (0-5); URINE RBC 0 - 2 /hpf (0-2); URINE WBC 0 - 2 /hpf (0-6)
[2017-11-02 00:05] LABS: ALB/GLOB RATIO 1.2 (1.1-1.8); ALBUMIN 4.3 g/dL (3.0-4.8); ALT/SGPT 79 U/L (7-56); AST/SGOT 45 U/L (14-36); BLOOD UREA NITROGEN 11 mg/dL (7-21); CALCIUM 9.3 mg/dL (8.4-10.5); GFR AFRICAN-AMERICAN > 60; GFR NON-AFRICAN AMERICAN > 60; LIPASE 1198 U/L (23-300)
[2017-11-02] MEDS ORDERED: Iohexol 350 MG/100 ML VIAL ONE (00:26)
[2017-11-02] MEDS ORDERED: Sodium Chloride 0.9% 1,000 ML IV SCH (02:45)
[2017-11-02] MEDS ORDERED: Pantoprazole 40mg/100mL NS 40 MG/100 ML BAG IVPB SCH (03:00)
--- NOTE | 2017-11-02 03:37 | CP.PCM.HP ---
History of Present Illness - History of Present Illness History of Present Illness: HISTORY & PHYSICAL FOR HOSPITALIST TEAM Maxi Frankel PGY1 CC: Abdominal pain, nausea and vomiting x 3 days HPI: 42 y/o F w/ pmhx of HTN, anxiety, migraines s/p gastric sleeve surgery on presented to ED with complaints of 7/10 severity abdominal pain, nausea and vomiting. Pt had bariatric sleeve surgery with Dr. Bingham and had been on a liquid diet since the surgery. She has been having intermittent epigastric abdominal pain for the past 2 days and had constant "tight, squeezing" intractable abdominal pain today when she decided to come to the ER. She also reports constant nausea and vomiting with clear/yellow fluid. She reports the pain is worse when vomiting, without alleviation by anything in particular. She hasn't had an appetite since the pain started and hasn't passed stool for the past 3 days. She reports a 21 pound weight loss since bariatric surgery. She reports no history of gallstones and denies heavy alcohol use. She denies any past or family history of pancreatitis. She denies fevers, chills, headache, dizziness, chest pain, SOB, constipation, diarrhea, dysuria. Pmhx: HTN, Anxiety, Migraines Psurghx: Sleeve gastrectomy 10/01/17 Allergies: NKDA Famhx: Mother: HTN. Father: DM Socialhx: Occasional drinker, 1 glass wine/night. Denies smoking or illicit drug use. Meds: amlodipine 5mg, ursodiol 300, sucralfate 10 PMD: Dr. Pacheco Bariatric Surgeon[facility] [place] Present on Admission - Present on Admission Any Indicators Present on Admission: No Review of Systems - Review of Systems All systems: reviewed and no additional remarkable complaints except (as per HPI , otherwise negative) Past Patient History - Infectious Disease Hx of Infectious Diseases: None - Past Social History Smoking Status: Never Smoked - CARDIAC Hx Cardiac Disorders: Yes Hx Hypertension: Yes - PULMONARY Hx Respiratory Disorders: No - NEUROLOGICAL Hx Neurological Disorder: No - HEENT Hx HEENT Problems: No - RENAL Hx Chronic Kidney Disease: No - ENDOCRINE/METABOLIC Hx Endocrine Disorders: No - HEMATOLOGICAL/ONCOLOGICAL Hx Blood Disorders: No - INTEGUMENTARY Hx Dermatological Problems: No - MUSCULOSKELETAL/RHEUMATOLOGICAL Hx Musculoskeletal Disorders: No Hx Falls: No - GASTROINTESTINAL Hx Gastrointestinal Disorders: Yes Other/Comment: gastritis, gallstones - GENITOURINARY/GYNECOLOGICAL Hx Genitourinary Disorders: No - PSYCHIATRIC Hx Psychophysiologic Disorder: No - SURGICAL HISTORY Hx Surgeries: Yes Hx Gastric Bypass Surgery: Yes (gastric sleeve 10/01/17) Hx Orthopedic Surgery: Yes - ANESTHESIA Hx Anesthesia: No Meds Allergies/Adverse Reactions: Allergies Allergy/AdvReac Type Severity Reaction Status Date / Time No Known Allergies Allergy Verified 11/01/17 23:03 Physical Exam - Constitutional Appears: Non-toxic - Head Exam Head Exam: NORMAL INSPECTION - Eye Exam Eye Exam: EOMI, Normal appearance - ENT Exam ENT Exam: Mucous Membranes Moist - Respiratory Exam Respiratory Exam: Clear to Auscultation Bilateral, NORMAL BREATHING PATTERN - Cardiovascular Exam Cardiovascular Exam: REGULAR RHYTHM, +S1, +S2 - GI/Abdominal Exam GI & Abdominal Exam: Hypoactive Bowel Sounds (x 4 quadrants), Soft, Tenderness ( to deep palpation in epigastric region). absent: Distended, Firm, Guarding Additional comments: 5 port incision sites noted from bariatric surgery. well healed, clean, dry, intact - Extremities Exam Extremities exam: Positive for: normal inspection. Negative for: calf tenderness - Neurological Exam Neurological exam: Alert, Oriented x3 - Psychiatric Exam Psychiatric exam: Normal Affect, Normal Mood - Skin Skin Exam: Dry, Warm Results - Vital Signs Recent Vital Signs: Last Vital Signs Temp 98.8 F 11/02/17 02:38 Pulse 86 11/02/17 02:38 Resp 20 11/02/17 02:38 BP 133/72 11/02/17 02:38 Pulse Ox 100 11/02/17 02:20 - Labs Result Diagrams: 11/02/17 05:30 11/02/17 05:30 Assessment & Plan - Assessment and Plan (Free Text) Assessment: 42 y/o F w/ pmhx of HTN, anxiety, s/p sleeve gastrectomy on 10/01/17 admitted for acute pancreatitis. Pt has been vomiting clear/yellow liquid. Pt was given 1L bolus NS, 5mg morphine, reglan & pepcid in ED which provided significant relief of abdominal pain. Pt admitted to floors and has been NPO, given IVF and analgesics. Plan: 1. Acute Pancreatitis - Pt is s/p sleeve gastrectomy 10/01/17. 21 pound weight loss since surgery - Gallbladder sonogram: no acute sonographic pathology in the rt. upper quadrant except mild hepatomegaly 17.3cm with echogenic consistent with diffuse fatty liver and rt. renal cyst - CT Abdomen and pelvis: Postoperative changes of gastric sleeve, small hiatal hernia, multiple uterine fibroids, no other acute CT pathology - Lipase 1198. AST: 45 ALT: 79 - Likely post-gastrectomy acute pancreatitis - NPO diet - NS @125mls/hr - morphine 2mg q4h prn - zofran 4mg q4h - GI Consult: Dr. Gong. F/u recs - f/u lipid panel, serum alcohol - f/u amylase, lipase - f/u blood/urine cultures 2. Transaminitis - likely secondary to pancreatitis - continue to monitor LFTs 3. Hypertension - continue home amlodipine - Hydralazine 10mg prn if systolic BP >170 DVT ppx/GI ppx/Diet: Hep/Protonix/NPO Case discussed with and reviewed by attending physician, Dr. Lim
[2017-11-02 06:30] LABS: BASO # 0.01 K/mm3 (0.0-2.0); BASO % 0.2 % (0.0-3.0); EOS % 0.4 % (1.5-5.0); GRAN # 2.73 (1.4-6.5); GRAN % 47.7 % (50.0-68.0); HEMOGLOBIN 10.9 g/dL (12.0-16.0); LYMPH # 2.6 (1.2-3.4); LYMPH % 45.9 % (22.0-35.0); MEAN CELL VOLUME 85.1 fl (80.0-105.0); MEAN CORPUSCULAR HEMOGLOBIN 27.9 pg (25.0-35.0); MEAN CORPUSCULAR HGB CONC 32.8 g/dl (31.0-37.0); MEAN PLATELET VOLUME 9.7 fl (7.0-11.0); MONO # 0.3 (0.1-0.6); MONO % 5.8 % (1.0-6.0); RBC 3.9 10^6/uL (3.5-6.1); RED CELL DISTRIBUTION WIDTH 15.9 % (11.5-14.5); WHITE BLOOD COUNT 5.7 10^3/ul (4.5-11.0)
[2017-11-02 06:41] LABS: HDL CHOLESTEROL 40 mg/dL (29-60)
[2017-11-02 06:51] LABS: LDL CHOLESTEROL 98 mg/dL (0-129)
[2017-11-02 07:05] LABS: ALB/GLOB RATIO 1.1 (1.1-1.8); ALBUMIN 3.9 g/dL (3.0-4.8); ALT/SGPT 74 U/L (7-56); AST/SGOT 38 U/L (14-36); BLOOD UREA NITROGEN 8 mg/dL (7-21); CALCIUM 8.7 mg/dL (8.4-10.5); GFR AFRICAN-AMERICAN > 60; GFR NON-AFRICAN AMERICAN > 60
--- NOTE | 2017-11-02 08:36 | CT ---
Date of service: 11/02/2017 PROCEDURE: CT Abdomen and Pelvis without intravenous contrast HISTORY: gastric sleeve, post op 09/2017, pain/nausea/vomit COMPARISON: None. TECHNIQUE: Technique. Contrast dose: Radiation dose: Total exam DLP = mGy-cm. This CT exam was performed using one or more of the following dose reduction techniques: Automated exposure control, adjustment of the mA and/or kV according to patient size, and/or use of iterative reconstruction technique. FINDINGS: LOWER THORAX: 4 millimeter nodule in the right middle lobe. LIVER: Unremarkable. No gross lesion or ductal dilatation. GALLBLADDER AND BILE DUCTS: Unremarkable. PANCREAS: Unremarkable. No gross lesion or ductal dilatation. SPLEEN: Unremarkable. ADRENALS: Unremarkable. No mass. KIDNEYS AND URETERS: Small right renal cyst. No hydronephrosis. No solid mass. VASCULATURE: Unremarkable. No aortic aneurysm. BOWEL: Status post gastric sleeve surgery. Small hiatal hernia. APPENDIX: Unremarkable. Normal appendix. PERITONEUM: Unremarkable. No free fluid. No free air. LYMPH NODES: Unremarkable. No enlarged lymph nodes. BLADDER: Unremarkable. REPRODUCTIVE: Enlarged leiomyomatous uterus. BONES: No acute fracture. OTHER FINDINGS: None. IMPRESSION: Unremarkable non contrast enhanced CT of the abdomen and pelvis.
[2017-11-02] MEDS ORDERED: Magnesium 2 gm/50 ml NS 2 GM/50 ML BAG IVPB ONE (10:22)
--- NOTE | 2017-11-02 11:25 | US ---
Date of service: 11/01/2017 HISTORY: upper abdominal pain COMPARISON: None. TECHNIQUE: Sonographic evaluation of the right upper quadrant of the abdomen. FINDINGS: LIVER: Measures 17.3 cm in length. Increased echogenicity of the liver parenchyma. No mass. No intrahepatic bile duct dilatation. GALLBLADDER: Unremarkable. No gallstones. COMMON BILE DUCT: Measures 5.8 mm. No stones. No dilatation. PANCREAS: Unremarkable as visualized. No mass. No ductal dilatation. RIGHT KIDNEY: Measures 10.9 x 4.6 x 4.7 cm in length. Normal echogenicity. No calculus, mass, or hydronephrosis. 1.2 cm cyst AORTA: No aneurysmal dilatation. IVC: Unremarkable. OTHER FINDINGS: None . IMPRESSION: Unremarkable study
[2017-11-02] MEDS: Lactated Ringer's 1,000 ML IV SCH (11:49)
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
[2017-11-02] MEDS: Morphine 2 mg/ml ISec IVP PRN ×2 (15:03→21:28)
[2017-11-03 07:06] LABS: BASO # 0.02 K/mm3 (0.0-2.0); BASO % 0.6 % (0.0-3.0); EOS # 0.2 (0.0-0.7); EOS % 5.7 % (1.5-5.0); GRAN # 1.27 (1.4-6.5); GRAN % 35.9 % (50.0-68.0); HEMOGLOBIN 10.4 g/dL (12.0-16.0); LYMPH # 1.6 (1.2-3.4); LYMPH % 46.5 % (22.0-35.0); MEAN CELL VOLUME 84.9 fl (80.0-105.0); MEAN CORPUSCULAR HEMOGLOBIN 27.5 pg (25.0-35.0); MEAN CORPUSCULAR HGB CONC 32.4 g/dl (31.0-37.0); MEAN PLATELET VOLUME 9.1 fl (7.0-11.0); MONO # 0.4 (0.1-0.6); MONO % 11.3 % (1.0-6.0); RBC 3.78 10^6/uL (3.5-6.1); RED CELL DISTRIBUTION WIDTH 15.8 % (11.5-14.5); WHITE BLOOD COUNT 3.5 10^3/ul (4.5-11.0)
[2017-11-03 07:17] LABS: ALB/GLOB RATIO 1.1 (1.1-1.8); ALBUMIN 3.6 g/dL (3.0-4.8); ALT/SGPT 62 U/L (7-56); AMYLASE 147 U/L (35-125); AST/SGOT 34 U/L (14-36); BLOOD UREA NITROGEN 4 mg/dL (7-21); CALCIUM 8.7 mg/dL (8.4-10.5); GFR AFRICAN-AMERICAN > 60; GFR NON-AFRICAN AMERICAN > 60
--- NOTE | 2017-11-03 07:39 | CP.PCM.PN ---
Subjective - Date & Time of Evaluation Date of Evaluation: 11/03/17 Time of Evaluation: 07:36 - Subjective Subjective: General Surgery Note for Dr. Bustamante Patient seen and examined at bedside. No acute event overnight. Patient states abd pain has resolved. She denies nausea/vomiting. She is tolerating diet. Patient admits to passing flatus but no BM. Patient has no complaints at this time. Objective - Vital Signs/Intake and Output Vital Signs (last 24 hours): Temp Pulse Resp BP Pulse Ox 98.2 F 74 19 132/88 97 11/02/17 18:00 11/02/17 18:00 11/02/17 18:00 11/02/17 18:00 11/02/17 18:00 Intake and Output: 11/03/17 11/03/17 06:59 18:59 Intake Total 360 Balance 360 - Medications Medications: Current Medications Amlodipine Besylate (Norvasc) 5 mg PO DAILY [facility] Last Admin: 11/02/17 09:34 Dose: 5 mg Heparin Sodium (Porcine) (Heparin) 5,000 units SC Q12 [facility] PRN Reason: Protocol Last Admin: 11/02/17 21:27 Dose: 5,000 units Hydralazine HCl (Apresoline) 10 mg IVP Q6 PRN PRN Reason: Systolic Blood Pressure Lactated Ringer's (Lactated Ringer's) 1,000 mls @ 200 mls/hr IV .Q5H [facility] Last Admin: 11/02/17 11:49 Dose: 200 mls/hr Morphine Sulfate (Morphine) 2 mg IVP Q4H PRN PRN Reason: Pain, moderate (4-7) Last Admin: 11/02/17 21:28 Dose: 2 mg Ondansetron HCl (Zofran Inj) 4 mg IVP Q4H PRN PRN Reason: Nausea/Vomiting Last Admin: 11/02/17 09:17 Dose: 4 mg Pantoprazole Sodium (Protonix Inj) 40 mg IVP DAILY [facility] Last Admin: 11/02/17 09:20 Dose: Not Given - Labs Labs: 11/03/17 06:30 11/03/17 06:30 APTT 24.6 Seconds (25.1-36.5) L 11/03/17 06:30 - Constitutional Appears: No Acute Distress - Head Exam Head Exam: ATRAUMATIC, NORMOCEPHALIC - Eye Exam Eye Exam: Normal appearance - ENT Exam ENT Exam: Mucous Membranes Moist - Respiratory Exam Respiratory Exam: NORMAL BREATHING PATTERN - Cardiovascular Exam Cardiovascular Exam: REGULAR RHYTHM - GI/Abdominal Exam GI & Abdominal Exam: Soft, Normal Bowel Sounds. absent: Distended, Firm, Guarding, Rigid, Tenderness, Rebound - Extremities Exam Extremities Exam: Normal Capillary Refill - Neurological Exam Neurological Exam: Alert, Awake, Oriented x3 - Psychiatric Exam Psychiatric exam: Normal Affect, Normal Mood - Skin Skin Exam: Dry, Intact, Normal Color, Warm Assessment and Plan - Assessment and Plan (Free Text) Assessment: 42 F with abdominal pain Plan: -CLD, ADAT -IV fluids -Analgesics/Anti-emetics PRN -OOB to chair/Ambulation -No surgical intervention needed at this time -Further recommendations as per Dr. Marquis Guillory PGY2
[2017-11-03 09:31] VITALS: RESP 20
--- NOTE | 2017-11-03 10:57 | CP.PCM.PN ---
<Gennaro Lester - Last Filed: 11/03/17 11:08> Subjective - Date & Time of Evaluation Date of Evaluation: 11/03/17 Time of Evaluation: 10:54 - Subjective Subjective: Gennaro Lester PGY1 Progress Note for Dr. Hermila Tejeda Ms. Mendoza was examined at bedside today. She reported some nausea yesterday along with one episode of vomiting yesterday, but claims it has improved today. She was able to tolerate water, ice, and jello this morning. She claims her last BM was two days ago. She denies any dizziness, chest pain, shortness of breath, abdominal pain, or dysuria. Objective - Vital Signs/Intake and Output Vital Signs (last 24 hours): Temp Pulse Resp BP Pulse Ox 98.3 F 66 20 148/91 H 100 11/03/17 06:00 11/03/17 06:00 11/03/17 06:00 11/03/17 06:00 11/03/17 06:00 Intake and Output: 11/03/17 11/03/17 06:59 18:59 Intake Total 360 Balance 360 - Medications Medications: Current Medications Amlodipine Besylate (Norvasc) 5 mg PO DAILY [facility] Last Admin: 11/03/17 09:27 Dose: 5 mg Heparin Sodium (Porcine) (Heparin) 5,000 units SC Q12 [facility] PRN Reason: Protocol Last Admin: 11/03/17 09:27 Dose: 5,000 units Hydralazine HCl (Apresoline) 10 mg IVP Q6 PRN PRN Reason: Systolic Blood Pressure Lactated Ringer's (Lactated Ringer's) 1,000 mls @ 200 mls/hr IV .Q5H [facility] Last Admin: 11/02/17 11:49 Dose: 200 mls/hr Morphine Sulfate (Morphine) 2 mg IVP Q4H PRN PRN Reason: Pain, moderate (4-7) Last Admin: 11/02/17 21:28 Dose: 2 mg Ondansetron HCl (Zofran Inj) 4 mg IVP Q4H PRN PRN Reason: Nausea/Vomiting Last Admin: 11/02/17 09:17 Dose: 4 mg Pantoprazole Sodium (Protonix Inj) 40 mg IVP DAILY [facility] Last Admin: 11/03/17 09:28 Dose: 40 mg - Labs Labs: 08/04/18 06:30 11/03/17 06:30 APTT 24.6 Seconds (25.1-36.5) L 11/03/17 06:30 - Constitutional Appears: Well, No Acute Distress - Head Exam Head Exam: ATRAUMATIC, NORMOCEPHALIC - Eye Exam Eye Exam: EOMI, Normal appearance Pupil Exam: NORMAL ACCOMODATION, PERRL - ENT Exam ENT Exam: Mucous Membranes Moist - Respiratory Exam Respiratory Exam: Clear to Ausculation Bilateral, NORMAL BREATHING PATTERN - Cardiovascular Exam Cardiovascular Exam: REGULAR RHYTHM, +S1, +S2 - GI/Abdominal Exam GI & Abdominal Exam: Soft, Hypoactive Bowel Sounds. absent: Distended, Firm, Tenderness - Extremities Exam Extremities Exam: Normal Inspection. absent: Pedal Edema, Tenderness - Neurological Exam Neurological Exam: Alert, Awake, Oriented x3 - Psychiatric Exam Psychiatric exam: Normal Affect, Normal Mood - Skin Skin Exam: Normal Color Assessment and Plan - Assessment and Plan (Free Text) Assessment: 42 y/o F w/ pmhx of HTN, anxiety, s/p sleeve gastrectomy on 10/01/17 complaining of nausea and vomiting admitted for acute pancreatitis. Plan: Emesis - likely etiology: post-gastrectomy GI disturbance vs. acute pancreatitis - Pt is s/p sleeve gastrectomy 10/01/17. 21 pound weight loss since surgery - reports improvement of nausea and vomiting today - diet advanced to bland soft food - AST: 34 (from 45 8/3) ALT: 62 (from 79 8/3) - serum alcohol <10- Gallbladder sonogram: no acute sonographic pathology in the rt. upper quadrant except mild hepatomegaly 17.3cm with echogenic consistent with diffuse fatty liver and rt. renal cyst - CT Abdomen and pelvis: Postoperative changes of gastric sleeve, small hiatal hernia, multiple uterine fibroids, no other acute CT pathology - LR @200 ml/hr - morphine 2mg q4h prn - zofran 4mg q4h - GI Consult: Dr. Gong - f/u recs. - Surgery Consult: Dr. Cho. No further recs at this time. - BCx neg prelim x1 - UCx pending Transaminitis - likely secondary to pancreatitis - continue to monitor LFTs Hypertension - continue home amlodipine - Hydralazine 10mg prn if systolic BP >170 DVT ppx/GI ppx/Diet: Hep/Protonix/Belle soft diet Case was reviewed and discussed with Dr. Hermila Tejeda. <Hermila Tejeda R - Last Filed: 11/04/17 17:43> Objective - Vital Signs/Intake and Output Vital Signs (last 24 hours): Temp Pulse Resp BP Pulse Ox 98.2 F 62 20 142/76 97 11/04/17 06:00 11/04/17 06:00 11/04/17 06:00 11/04/17 06:00 11/04/17 06:00 - Medications Medications: Current Medications Amlodipine Besylate (Norvasc) 5 mg PO DAILY [facility] Last Admin: 11/04/17 09:11 Dose: 5 mg Heparin Sodium (Porcine) (Heparin) 5,000 units SC Q12 BEE PRN Reason: Protocol Last Admin: 11/04/17 09:03 Dose: Not Given Hydralazine HCl (Apresoline) 10 mg IVP Q6 PRN PRN Reason: Systolic Blood Pressure Lactated Ringer's (Lactated Ringer's) 1,000 mls @ 200 mls/hr IV .Q5H [facility] Last Admin: 11/04/17 02:30 Dose: 200 mls/hr Morphine Sulfate (Morphine) 2 mg IVP Q4H PRN PRN Reason: Pain, moderate (4-7) Last Admin: 11/02/17 21:28 Dose: 2 mg Ondansetron HCl (Zofran Inj) 4 mg IVP Q4H PRN PRN Reason: Nausea/Vomiting Last Admin: 11/04/17 09:11 Dose: 4 mg Pantoprazole Sodium (Protonix Inj) 40 mg IVP DAILY [facility] Last Admin: 11/04/17 09:11 Dose: 40 mg - Labs Labs: 11/04/17 07:15 11/04/17 07:15 APTT 24.6 Seconds (25.1-36.5) L 11/03/17 06:30 Attending/Attestation - Attestation I have personally seen and examined this patient.: Yes I have fully participated in the care of the patient.: Yes I have reviewed all pertinent clinical information, including history, physical exam and plan: Yes Notes (Text): Patient seen and examined by me at 9:20AM with resident 11/03/17. Case including HPI, physical exam, and assessment and plan discussed with resident. Agree with above with following additions/corrections. Patient is a 42-year-old female with past medical history significant for hypertension, anxiety, and migraines status post gastric sleeve surgery on 10/01 that presented to the emergency room with abdominal pain, nausea, and vomiting. Patient is states she is feeling better. Nausea has improved. Pain is improved. She denies any vomiting this morning. Patient has tolerated ice chips and a little bit of liquids. She denies any chest pain or palpitations. No fevers or chills. No headaches or dizziness. No dysuria. No bowel movement in 3 days. Her patient states she has not been eating and does not feel constipated. Physical exam: Gen: Awake and alert sitting up in bed in no acute distress HEENT: Normocephalic atraumatic. Extraocular muscles intact, pupils equal reactive. Oropharynx is pink and moist, no pharyngeal erythema or exudate appreciated. Neck is supple. Cardiovascular:Regular rhythm. Normal S1 and S2. No murmurs, rubs, or gallops appreciated Pulmonary: Normal respiratory effort. No rhonchi, wheezing, or rales appreciated. Gastrointestinal: Soft, mild abdominal tenderness with deep palpation, nondistended, positive bowel sounds all 4 quadrants, no guarding. Musculoskeletal: Normal range of motion all extremities, no calf tenderness. No edema appreciated. No edema appreciated. Central nervous system: AAO x 3. CN 2-12 grossly intact Dermatologic: Skin warm and dry Assessment and plan: Patient is a 42-year-old female with past medical history significant for hypertension, anxiety, and migraines status post gastric sleeve surgery on 10/01/2017 that presented to the emergency room with abdominal pain, nausea, and vomiting. 1. Non-intractable nausea and vomiting. Mid abdominal pain. S/P recent gastric sleeve. May be secondary to this. Surgery consulted, recommendations appreciated. GI consulted, recommendations appreciated. CT abdomen and pelvis per radiologist shows unremarkable noncontrast enhanced CT of the abdomen and pelvis. Gallbladder ultrasound per radiologist showed unremarkable study. Continue on liquid diet for now. Advance diet as tolerated. Zofran prn. Continue with protonix. continue with pain management 2. Elevated LFTS. Likely secondary to recent gastric sleeve. Improving. Continue to monitor. 3. S/P gastric sleeve. Patient advised to follow up with her bariatric surgeon as soon as possible post discharge 4. Hypertension. Continue Norvasc 5. GI/DVT prophylaxis. Protonix and Heparin Case was discussed in detail with the patient regarding current diagnosis and treatment plan
--- NOTE | 2017-11-03 11:07 | PN ---
Copied To: Mike Gong DO Attending MD: Mike Gong DO DATE: 11/03/2017 SUBJECTIVE: I saw Ms. Mendoza this morning. She is a 42-year-old black female admitted with complaints of abdominal pain and elevated lipase. Patient has made some progress over the past 24 hours with decreased pain, which is still present in the epigastric area. There has not been any hematemesis or rectal bleeding noted by the patient. She is able to handle small volumes of ice chips. PHYSICAL EXAMINATION: VITAL SIGNS: I reviewed this patient's vital signs. HEENT: Significant for dry mouth. LUNGS: Clear to auscultation. HEART: Regular rhythm. ABDOMEN: Soft, mildly protuberant, nontender in the right upper quadrant. No tenderness noted in periumbilical as well as left lower quadrant and left paraumbilical. No tenderness also noted in the left upper quadrant. She is moderately tender still in the area of the epigastric area. LABORATORY DATA: Pending for today. As of yesterday, transaminases pretty much the same. Repeat lipase noted. Her lipids have been within normal limits. OVERALL ASSESSMENT: A 42-year-old black female admitted with abdominal pain, found to have an elevated lipase. Overall admitting diagnosis is pancreatitis; however, clinical history and exam is more consistent with epigastric pain secondary to either gastritis and esophagitis in the setting of a hiatal hernia. Note that the patient does not practice antireflux precautions. PLAN: Suggest continue on the current regimen. Patient is improving, currently on pantoprazole daily as well as ondansetron, morphine for pain, Lactated Ringers. Patient may do well with an endoscopic procedure as an outpatient at a later date. Continue her on a liquid diet today and possibly advance as tolerated. Mike Gong DO, PhD MTDChrista
[2017-11-03] MEDS ORDERED: Potassium Chloride 20 mEq ER Tab PO ONE (14:36)
[2017-11-03] MEDS: Lactated Ringer's 1,000 ML IV SCH (20:48)
[2017-11-03] MEDS ORDERED: HYDROmorphone 0.5 mg/0.5 ml ISec IVP STA (23:25)
[2017-11-04] MEDS: Lactated Ringer's 1,000 ML IV SCH (02:30)
--- NOTE | 2017-11-04 07:17 | CP.PCM.PN ---
Subjective - Date & Time of Evaluation Date of Evaluation: 11/04/17 Time of Evaluation: 07:17 - Subjective Subjective: Surgery Pt seen and examined. No acute events overnight. Reports nausea, no vomiting. On altered GI diet. Pain controlled. Ambulating, voiding. Denies diarrhea, CP , SOB. Objective - Vital Signs/Intake and Output Vital Signs (last 24 hours): Temp Pulse Resp BP Pulse Ox 98 F 64 20 146/91 H 99 11/03/17 16:28 11/03/17 16:28 11/03/17 16:28 11/03/17 16:28 11/03/17 16:28 - Medications Medications: Current Medications Amlodipine Besylate (Norvasc) 5 mg PO DAILY [facility] Last Admin: 11/03/17 09:27 Dose: 5 mg Heparin Sodium (Porcine) (Heparin) 5,000 units SC Q12 [facility] PRN Reason: Protocol Last Admin: 11/03/17 21:48 Dose: 5,000 units Hydralazine HCl (Apresoline) 10 mg IVP Q6 PRN PRN Reason: Systolic Blood Pressure Lactated Ringer's (Lactated Ringer's) 1,000 mls @ 200 mls/hr IV .Q5H [facility] Last Admin: 11/04/17 02:30 Dose: 200 mls/hr Morphine Sulfate (Morphine) 2 mg IVP Q4H PRN PRN Reason: Pain, moderate (4-7) Last Admin: 11/02/17 21:28 Dose: 2 mg Ondansetron HCl (Zofran Inj) 4 mg IVP Q4H PRN PRN Reason: Nausea/Vomiting Last Admin: 11/03/17 21:47 Dose: 4 mg Pantoprazole Sodium (Protonix Inj) 40 mg IVP DAILY [facility] Last Admin: 11/03/17 09:28 Dose: 40 mg - Labs Labs: APTT 24.6 Seconds (25.1-36.5) L 11/03/17 06:30 - Constitutional Appears: No Acute Distress - Head Exam Head Exam: ATRAUMATIC, NORMAL INSPECTION, NORMOCEPHALIC - Eye Exam Eye Exam: EOMI, Normal appearance, PERRL Pupil Exam: NORMAL ACCOMODATION, PERRL - ENT Exam ENT Exam: Mucous Membranes Moist, Normal Exam - Neck Exam Neck Exam: Full ROM, Normal Inspection. absent: Lymphadenopathy - Respiratory Exam Respiratory Exam: NORMAL BREATHING PATTERN - Cardiovascular Exam Cardiovascular Exam: REGULAR RHYTHM - GI/Abdominal Exam GI & Abdominal Exam: Soft, Normal Bowel Sounds. absent: Distended, Firm, Guarding, Rigid, Tenderness, Hernia, Mass, Rebound - Extremities Exam Extremities Exam: Full ROM, Normal Capillary Refill, Normal Inspection. absent : Joint Swelling, Pedal Edema - Back Exam Back Exam: NORMAL INSPECTION - Neurological Exam Neurological Exam: Alert, Awake, CN II-XII Intact, Normal Gait, Oriented x3 - Psychiatric Exam Psychiatric exam: Normal Affect, Normal Mood - Skin Skin Exam: Dry, Intact, Normal Color, Warm Assessment and Plan - Assessment and Plan (Free Text) Assessment: Acute pancreatitis: Improving. s/p sleeve gastrectomy 10/03 US: no gallstone LFT trending down -Continue PPI. DC home w PPI to prevent marginal ulcers s/p gastrectomy -Advance diet as tolerated. -Nausea control -Pain control -No surgical intervention -We will sign off Will ISABEL Cho
[2017-11-04 07:32] LABS: BASO # 0.02 K/mm3 (0.0-2.0); BASO % 0.4 % (0.0-3.0); EOS # 0.3 (0.0-0.7); GRAN # 1.48 (1.4-6.5); GRAN % 28.4 % (50.0-68.0); HEMOGLOBIN 10.8 g/dL (12.0-16.0); MEAN CELL VOLUME 84.8 fl (80.0-105.0); MEAN CORPUSCULAR HEMOGLOBIN 27.3 pg (25.0-35.0); MEAN CORPUSCULAR HGB CONC 32.1 g/dl (31.0-37.0); MEAN PLATELET VOLUME 8.9 fl (7.0-11.0); MONO # 0.4 (0.1-0.6); MONO % 8.2 % (1.0-6.0); RBC 3.96 10^6/uL (3.5-6.1); RED CELL DISTRIBUTION WIDTH 15.4 % (11.5-14.5); WHITE BLOOD COUNT 5.2 10^3/ul (4.5-11.0)
[2017-11-04 08:12] LABS: ALB/GLOB RATIO 1.1 (1.1-1.8); ALBUMIN 3.5 g/dL (3.0-4.8); ALT/SGPT 58 U/L (7-56); AST/SGOT 23 U/L (14-36); BLOOD UREA NITROGEN 3 mg/dL (7-21); CALCIUM 9.2 mg/dL (8.4-10.5); GFR AFRICAN-AMERICAN > 60; GFR NON-AFRICAN AMERICAN > 60
[2017-11-04 09:49] VITALS: BP 142/76; PULSE 62; TEMP 98.2; O2SAT 97
[2017-11-04] MEDS ORDERED: Magnesium 2 gm/50 ml NS 2 GM/50 ML BAG IVPB ONE (09:50)
--- NOTE | 2017-11-04 10:53 | PN ---
Copied To: Mike Gong DO Attending MD: Mike Gong DO DATE: 11/04/2017 SUBJECTIVE: I saw Ms. Mendzoa this morning. She is a 42-year-old black female admitted with complaints of epigastric pain, found to have an elevated lipase on admission. Patient has made progress over the past 36 hours. She is able to handle small volumes of liquid as well as small volumes of soft diet without nausea or vomiting. Pain rated this morning roughly about 5-6/10. She denied rectal bleeding or hematemesis. Abdomen is less distended than on the day of admission. PHYSICAL EXAMINATION: VITAL SIGNS: I reviewed this patient's vital signs. HEENT: Noncontributory. LUNGS: Clear to auscultation. HEART: Regular rhythm. ABDOMEN: Soft. No tenderness elicited in the right lower quadrant, right upper quadrant, periumbilical, left lower, and left upper quadrant. She is still moderately tender in the epigastric area. DATA: Laboratory data indicated decreasing white count, last white count 3.5, H and H 10/32. Comprehensive metabolic profile significant for last lipase of 147. Laboratory data has improved relative to the day of admission. AST and ALT ratio is 34/62. OVERALL ASSESSMENT: This is a 42-year-old black female admitted with complaints of severe epigastric pain with elevated lipase on admission. Even though the patient was admitted with "pancreatitis history" , as well as physical exam. The patient had previously history and exam more suggestive of severe acid reflux plus possible gastritis, possibly ulcer, and hiatal hernia issues. Note that the patient should have an endoscopy as an outpatient. On a daily basis, I had been reviewing antireflux precautions, which the patient has not followed in the past. PLAN: The patient is discharged today. She should be on a proton pump inhibitor on a daily basis and practice antireflux precautions. She must use significant dietary discretion. Mike Gong DO, PhD [facility] INS[facility]Christa
--- NOTE | 2017-11-04 12:19 | CP.PCM.DIS ---
Provider - Provider Date of Admission: 11/03/17 14:34 Attending physician: Hermila Tejeda DO Primary care physician: Otis Pacheco MD Consults: KRISTIN Gong General Surgery Dr. Cho Time Spent in preparation of Discharge (in minutes): 45 Hospital Course - Lab Results Lab Results: Most Recent Lab Values WBC 5.2 10^3/ul (4.5-11.0) D 11/04/17 07:15 RBC 3.96 10^6/uL (3.5-6.1) 11/04/17 07:15 Hgb 10.8 g/dL (12.0-16.0) L 11/04/17 07:15 Hct 33.6 % (36.0-48.0) L 11/04/17 07:15 MCV 84.8 fl (80.0-105.0) 11/04/17 07:15 MCH 27.3 pg (25.0-35.0) 11/04/17 07:15 MCHC 32.1 g/dl (31.0-37.0) 11/04/17 07:15 RDW 15.4 % (11.5-14.5) H 11/04/17 07:15 Plt Count 311 10^3/uL (120.0-450.0) 11/04/17 07:15 MPV 8.9 fl (7.0-11.0) 11/04/17 07:15 Gran % 28.4 % (50.0-68.0) L 11/04/17 07:15 Lymph % (Auto) 58.0 % (22.0-35.0) H 11/04/17 07:15 [place] % (Auto) 8.2 % (1.0-6.0) H 11/04/17 07:15 Eos % (Auto) 5.0 % (1.5-5.0) 11/04/17 07:15 Baso % (Auto) 0.4 % (0.0-3.0) 11/04/17 07:15 Gran # 1.48 (1.4-6.5) 11/04/17 07:15 Lymph # (Auto) 3.0 (1.2-3.4) 11/04/17 07:15 [place] # (Auto) 0.4 (0.1-0.6) 11/04/17 07:15 Eos # (Auto) 0.3 (0.0-0.7) 11/04/17 07:15 Baso # (Auto) 0.02 K/mm3 (0.0-2.0) 11/04/17 07:15 APTT 24.6 Seconds (25.1-36.5) L 11/03/17 06:30 Sodium 142 mmol/L (132-148) 11/04/17 07:15 Potassium 3.6 mmol/L (3.6-5.0) 11/04/17 07:15 Chloride 106 mmol/L (98-107) 11/04/17 07:15 Carbon Dioxide 26 mmol/L (21-33) 11/04/17 07:15 Anion Gap 14 (10-20) 11/04/17 07:15 BUN 3 mg/dL (7-21) L 11/04/17 07:15 Creatinine 0.7 mg/dl (0.7-1.2) 11/04/17 07:15 Est GFR ( Amer) > 60 11/04/17 07:15 Est GFR (Non-Af Amer) > 60 11/04/17 07:15 Random Glucose 96 mg/dL (70-110) 11/04/17 07:15 Calcium 9.2 mg/dL (8.4-10.5) 11/04/17 07:15 Phosphorus 3.7 mg/dL (2.5-4.5) 11/04/17 07:15 Magnesium 1.5 mg/dL (1.7-2.2) L 11/04/17 07:15 Total Bilirubin 1.0 mg/dL (0.2-1.3) 11/04/17 07:15 AST 23 U/L (14-36) 11/04/17 07:15 ALT 58 U/L (7-56) H 11/04/17 07:15 Alkaline Phosphatase 51 U/L (38-126) 11/04/17 07:15 Total Protein 6.7 g/dL (5.8-8.3) 11/04/17 07:15 Albumin 3.5 g/dL (3.0-4.8) 11/04/17 07:15 Globulin 3.2 gm/dL 11/04/17 07:15 Albumin/Globulin Ratio 1.1 (1.1-1.8) 11/04/17 07:15 Triglycerides 65 mg/dL (35-160) 11/02/17 05:30 Cholesterol 168 mg/dL (130-200) 11/02/17 05:30 LDL Cholesterol Direct 98 mg/dL (0-129) 11/02/17 05:30 HDL Cholesterol 40 mg/dL (29-60) 11/02/17 05:30 Amylase 147 U/L (35-125) H 11/03/17 06:30 Lipase 1198 U/L (23-300) H 11/01/17 23:30 Urine Color Yellow (YELLOW) 11/01/17 23:30 Urine Appearance Cloudy (CLEAR) 11/01/17 23:30 Urine pH 6.0 (4.7-8.0) 11/01/17 23:30 Ur Specific [place] >= 1.030 (1.005-1.035) 11/01/17 23:30 Urine Protein 100 mg/dL (<30 mg/dL) H 11/01/17 23:30 Urine Glucose (UA) Negative mg/dL (NEGATIVE) 11/01/17 23:30 Urine Ketones >=80 mg/dL (NEGATIVE) 11/01/17 23:30 Urine Blood Trace-intact (NEGATIVE) H 11/01/17 23:30 Urine Nitrate Negative (NEGATIVE) 11/01/17 23:30 Urine Bilirubin Small (NEGATIVE) H 11/01/17 23:30 Urine Urobilinogen 1.0 E.U./dL (<1 E.U./dL) H 11/01/17 23:30 Ur Leukocyte Esterase Negative Caryn/uL (NEGATIVE) 11/01/17 23:30 Urine RBC 0 - 2 /hpf (0-2) 11/01/17 23:30 Urine WBC 0 - 2 /hpf (0-6) 11/01/17 23:30 Ur Epithelial Cells Many /hpf (0-5) 11/01/17 23:30 Urine Bacteria Mod (NEG) 11/01/17 23:30 Alcohol, Quantitative < 10 mg/dL (0-10) 11/02/17 05:30 - Hospital Course Hospital Course: Upon Admission 42yo female PMHx HTN, anxiety, migraines, gastric sleeve surgery 10/01/17 presented to the ER complaining of severe abdominal pain, nausea, and vomiting for 2 days. Patient described the pain as a 7/10 in severity and described a tight, squeezing, intractable pain. Patient reported that since her surgery she was following a strict liquid diet however because of her abdominal pain she has had decreased PO intake over the past 2 days. She reported constant nausea and nonbloody nonbilious emesis. She reported the abdominal pain worsened with vomiting and did not try anything to alleviate it. Patient reported a 21 pound weight loss since her procedure; she denied any history of gallstones and heavy EtOH abuse. Patient also denied any past history of pancreatitis. Hospital Course Patient was admitted to med/surg for suspected pancreatitis. Patient's lipase was elevated in the ER at [address] abdomen/pelvis was unremarkable. Patient also had a GB u/s which was unremarkable. Patient was kept NPO and started on NS @125cc/hr. GI Dr. Gong was consulted who had a low suspicion for pancreatitis and recommend surgical evaluation of the gastric sleeve. Dr. Cho surgery was consulted who started the patient on LR@200cc/hr and advanced her diet to clear liquids. Patient tolerated clear liquids and had PPI , anti-emetics, and pain medications on board. Diet was advanced to GI and patient clinically during hospital course. On day of discharge patient reported symptoms had resolved. Upon Discharge Upon discharge patient instructed to take the following medications as prescribed: -Protonix 40mg 1 tab by mouth daily (30 minutes prior to consuming breakfast ) -Norvasc 5mg 1 tab by mouth daily Patient to also resume home medication Carafate as prescribed. Patient to follow up with your primary care doctor, Dr. Pacheco within 7 days upon discharge and with bariatric surgeon Dr. Hamm on Sunday11/07/17 as discussed. Patient advised to follow the "Gastric Sleeve Diet" as discussed. Patient also counseled to follow up with a [facility] Cutter for an endoscopic procedure outpatient. If symptoms returned patient instructed to return to the ER. Instructions discussed in detail with patient who understood and agreed. Discharge Exam - Head Exam Head Exam: ATRAUMATIC, NORMAL INSPECTION, NORMOCEPHALIC - Eye Exam Eye Exam: EOMI, Normal appearance, PERRL. absent: Conjunctival injection, Scleral icterus Pupil Exam: NORMAL ACCOMODATION, PERRL - ENT Exam ENT Exam: Mucous Membranes Moist - Neck Exam Neck exam: Full Rom, Normal Inspection - Respiratory Exam Respiratory Exam: Clear to PA & Lateral, NORMAL BREATHING PATTERN, UNREMARKABLE. absent: Accessory Muscle Use, Rales, Rhonchi, Wheezes, Respiratory Distress - Cardiovascular Exam Cardiovascular Exam: REGULAR RHYTHM, +S1, +S2 - GI/Abdominal Exam GI & Abdominal Exam: Normal Bowel Sounds, Soft. absent: Firm, Rebound, Rigid - Rectal Exam Rectal Exam: Deferred - Extremities Exam Extremities exam: normal capillary refill, normal inspection, pedal pulses present - Back Exam Back exam: NORMAL INSPECTION. absent: rash noted - Neurological Exam Neurological exam: Alert, CN II-XII Intact, Oriented x3 - Psychiatric Exam Psychiatric exam: Normal Affect, Normal Mood - Skin Skin Exam: Dry, Intact, Normal Color, Warm Discharge Plan - Discharge Medications Prescriptions: amLODIPine [Norvasc] 5 mg PO DAILY #30 tab Pantoprazole Sodium [Protonix] 40 mg PO DAILY #30 ect - Follow Up Plan Condition: STABLE Disposition: HOME/ ROUTINE Instructions: Pancreatitis (DC), Hypokalemia (DC), Hypokalemia (GEN) Additional Instructions: Upon discharge please take the following medications as prescribed: -Protonix 40mg 1 tab by mouth daily (30 minutes prior to consuming breakfast ) -Norvasc 5mg 1 tab by mouth daily Please resume home medication of Carafate as prescribed. Please take Protonix 40mg 1 tab 30 minutes prior to Carafate to optimize medication effect. Please follow up with your primary care doctor, Dr. Pacheco within 7 days upon discharge. Please also follow up with your surgeon, Dr. Hamm on 11/07 as discussed. Please follow the "Gastric Sleeve Diet" as discussed with your surgeon. We also recommend you follow up with a [facility] C[facility] for an endoscopic procedure outpatient, please follow up with your primary care doctor for referral. If symptoms return please return to the Emergency Department. Referrals: Otis Pacheco MD [Primary Care Provider] -
--- NOTE | 2017-11-05 08:20 | CON ---
Copied To: Mike Gong DO Attending MD: Mike Gong DO DATE: 11/02/2017 HISTORY OF PRESENT ILLNESS: I saw Ms. Mendoza this morning. She is a 42-year-old black female with a past medical history of hypertension, anxiety, and migraines. Of note, she had a gastric sleeve surgery on 10/01/2017. She indicated that moderate type abdominal pain in the epigastric area started about 3 days prior to admission. She said that she had been seen by her bariatric surgeon on 10/18/2017 and results indicated everything was going well. She had no complaints in the whole month of September. The patient did note fullness in the epigastric area. She said there was some belching, but no significant bleeding or hematemesis. She has had constipation for the last 3 days because she has not been eating. SOCIAL HISTORY: I have reviewed the patient's social history and she is a nonsmoker and also does not drink heavily, an occasional glass of wine concern. MEDICATIONS: She is on include amlodipine, , Carafate. PHYSICAL EXAMINATION: VITAL SIGNS: I reviewed this patient's vital signs. HEENT: Noncontributory. LUNGS: Clear to auscultation HEART: Regular rhythm. ABDOMEN: Soft. Normal bowel sounds noted. She is nontender in the right upper, right lower quadrant, or periumbilical. She is nontender in the left upper quadrant, left lower quadrant, suprapubic, periumbilical area. She has a moderate amount of tenderness in the epigastric area. LABORATORY DATA: I reviewed this patient's laboratory data which is consistent with WBC of 6.5, H and H 11/36, and platelet count 367. Chemistry indicates mildly low magnesium with mild elevation of AST and ALT. Lipase 1198. K of 3.5, this was as of last night. I reviewed the CT of the abdomen as well as the ultrasound. Ultrasound indicates common bile duct is not dilated. No stones noted. She does have evidence of hepatic steatosis, diffuse. Pancreas structure appears to be normal. OVERALL ASSESSMENT: She is a 42-year-old black female with complaints of severe epigastric pain rated by the patient roughly 5-6/10. Pain is not constant, but comes and goes. Appears to be "squeezing type " sensation. Based on her history, diagnoses may be gastritis, history of possibly small ulceration in her hiatal hernia, which was not on CT scan. Note that she does not practice antireflux precautions. Based on exam, findings not indicative of acute pancreatitis type case time point based on exam and history. We will continue her on current medications, which include IV fluids and PPI on a daily basis. She has Zofran ordered for nausea. Just for complete clarification purposes based on her clinical presentation and the fact that she is recently postop bariatric surgery, may consider input from surgical service to just make sure everything is okay from their point of view. Mike Gong DO
== END 2017-11-04 18:24 | disposition home or self-care (01) | DRG 440 ==
LOC: ED 22:31 → ERH 11-02 01:34 → 3RSO 11-02 02:22 → OBSVTOIN 11-03 14:34
PROVIDERS: ADMIT Internal Medicine; ATTEND Internal Medicine
DX: K85.90 Acute pancreatitis without necrosis or infection, unspecified (principal); I10 Essential (primary) hypertension; K59.00 Constipation, unspecified; E83.42 Hypomagnesemia; E87.6 Hypokalemia; K29.70 Gastritis, unspecified, without bleeding; G43.909 Migraine, unspecified, not intractable, without status migrainosus; F41.9 Anxiety disorder, unspecified; E66.9 Obesity, unspecified; Z98.84 Bariatric surgery status

== ENCOUNTER 2017-12-17 20:30 | Emergency (ER) | payer OTHER ==
[2017-12-17 21:14] VITALS: BMI 36.3
[2017-12-17 21:17] VITALS: RESP 16
[2017-12-17] MEDS ORDERED: Apap-Butalbital-Caffeine 325-50-40mg Tab PO STA (21:35)
[2017-12-17] MEDS ORDERED: Sodium Chloride 0.9% 1,000 ML IV STA (21:36)
--- NOTE | 2017-12-17 21:51 | ED PDOC ---
Arrival/HPI - General Chief Complaint: Headache Time Seen by Provider: 12/17/17 21:18 Historian: Patient - History of Present Illness Narrative History of Present Illness (Text): 12/17/17 21:43 42 year old female, whose past medical history includes gastritis, gallstones, gastric sleeve surgery on 10/01/2017, hypertension, and migraine headaches, presents to the Emergency department with episode of blurry vision to right side , and left sided head ache, one hour prior. Patient states she has had similar symptoms in the past, however this one lasted longer, and followed by a headache. Patient states that in the past her symptoms have went away by lying down and covering her head. Patient informs taking her blood pressure medication, amlodipine, and a Xanax, since the incident. Patient informs she was able to walk normal, denying any weakness in arms or legs, tingling in fingers or toes, chest pain, shortness of breath, abdominal pain, or any other complaints. Time/Duration: 1 hour Symptom Course: Improving Context: Home Past Medical History - Provider Review Nursing Documentation Reviewed: Yes - Infectious Disease Hx of Infectious Diseases: None - Cardiac Hx Cardiac Disorders: Yes Hx Hypertension: Yes - Pulmonary Hx Respiratory Disorders: No - Neurological Hx Neurological Disorder: No - HEENT Hx HEENT Disorder: No - Renal Hx Renal Disorder: No - Endocrine/Metabolic Hx Endocrine Disorders: No - Hematological/Oncological Hx Blood Disorders: No - Integumentary Hx Dermatological Disorder: No - Musculoskeletal/Rheumatological Hx Musculoskeletal Disorders: No - Gastrointestinal Hx Gastrointestinal Disorders: No - Genitourinary/Gynecological Hx Genitourinary Disorders: No - Psychiatric Hx Psychophysiologic Disorder: No Hx Substance Use: No - Surgical History Hx Orthopedic Surgery: Yes - Anesthesia Hx Anesthesia: No - Suicidal Assessment Feels Threatened In Home Enviroment: No Family/Social History - Physician Review Nursing Documentation Reviewed: Yes Family/Social History: No Known Family HX Smoking Status: Never Smoked Hx Alcohol Use: Yes Hx Substance Use: No Allergies/Home Meds Allergies/Adverse Reactions: Allergies No Known Allergies Allergy (Verified 11/01/17 23:03) Home Medications: Home Meds Medication Instructions Recorded Confirmed Sucralfate [Carafate Oral Susp] 10 ml PO BID PRN 10/07/17 11/02/17 Review of Systems - Physician Review All systems were reviewed & negative as marked: Yes - Review of Systems Constitutional: Normal Eyes: Vision Changes ENT: Normal Respiratory: Normal. absent: SOB Cardiovascular: Normal. absent: Chest Pain Gastrointestinal: Normal. absent: Abdominal Pain Genitourinary Female: Normal Musculoskeletal: Normal Skin: Normal Neurological: Headache. absent: Focal Weakness, Gait Changes, Disequilibrium Endocrine: Normal Hemo/Lymphatic: Normal Psychiatric: Normal Physical Exam Vital Signs Reviewed: Yes Vital Signs Temp Pulse Resp BP Pulse Ox 12/17/17 21:16 98.1 F 70 16 160/97 H 99 Temperature: Afebrile Blood Pressure: Hypertensive Pulse: Regular Respiratory Rate: Normal Appearance: Positive for: Well-Appearing, Non-Toxic, Comfortable Pain Distress: None Mental Status: Positive for: Alert and Oriented X 3 - Systems Exam Head: Present: Atraumatic, Normocephalic Pupils: Present: PERRL Extroacular Muscles: Present: EOMI Conjunctiva: Present: Normal Mouth: Present: Moist Mucous Membranes Neck: Present: Normal Range of Motion Respiratory/Chest: Present: Clear to Auscultation, Good Air Exchange. No: Respiratory Distress, Accessory Muscle Use Cardiovascular: Present: Regular Rate and Rhythm, Normal S1, S2. No: Murmurs Abdomen: No: Tenderness, Distention, Peritoneal Signs Back: Present: Normal Inspection Upper Extremity: Present: Normal Inspection. No: Cyanosis, Edema Lower Extremity: Present: Normal Inspection. No: Edema Neurological: Present: GCS=15, CN II-XII Intact, Speech Normal, Motor Func Grossly Intact, Normal Sensory Function, Gait Normal, Other (Peripheral vision intact, visual accuity intact, cranial nerves intact, motor function intact) Skin: Present: Warm, Dry, Normal Color. No: Rashes Psychiatric: Present: Alert, Oriented x 3, Normal Insight, Normal Concentration Medical Decision Making ED Course and Treatment: 12/17/17 21:59 Impression: 42 year old female presents with blurred right sided vision, and left sided headache. Plan: -- CT Head -- Reglan -- Fioricet -- Labs -- Urinalysis -- Reassess and disposition Prior Visits: Notes and results from previous visits were reviewed. Progress Notes: 12/17/17 23:35 CTH negative for intracranial bleeding, masses or shift. Patient reevaluated reporting complete resolution of symptoms. She is advised to follow up with her PCP n - Lab Interpretations Lab Results: Lab Results 12/17/17 23:02: Urine Color Yellow, Urine Appearance Clear, Urine pH 6.5, Ur Specific [place] <= 1.005, Urine Protein Negative, Urine Glucose (UA) Negative, Urine Ketones Negative, Urine Blood Negative, Urine Nitrate Negative, Urine Bilirubin Negative, Urine Urobilinogen 0.2, Ur Leukocyte Esterase Negative - RAD Interpretation Narrative RAD Interpretations (Text): 12/17/17 23:31 CT Head Without Intravenous Contrast CLINICAL HISTORY: 42 years old, female; Pain; Headache; Headache not specified TECHNIQUE: Axial computed tomography images of the head/brain without intravenous contrast. All CT scans at this facility use at least one of these dose optimization techniques: automated exposure control; mA and/or kV adjustment per patient size (includes targeted exams where dose is matched to clinical indication); or iterative reconstruction. Coronal and sagittal reformatted images were created and reviewed. COMPARISON: CT - HEAD W/O CONTRAST 11/04/2016 8:50 PM FINDINGS: Brain: Unremarkable. No hemorrhage. No significant white matter disease. No edema. Ventricles: Unremarkable. No ventriculomegaly. Bones/joints: Unremarkable. No acute fracture. Soft tissues: Unremarkable. Sinuses: Unremarkable as visualized. No acute sinusitis. Mastoid air cells: Unremarkable as visualized. No mastoid effusion. Other findings: No acute findings. IMPRESSION: No acute findings. Radiology Orders: 12/17/17 21:35 HEAD W/O CONTRAST [CT] Stat Flux Mixer: Radiologist - Medication Orders Current Medication Orders: Discontinued Medications Acetaminophen/Butalbital/Caffeine (Fioricet) 1 tab PO Q4H STA Stop: 12/17/17 21:36 Last Admin: 12/17/17 22:46 Dose: 1 tab MAR Pain Assessment Document 12/17/17 22:46 LAC (Rec: 12/17/17 22:46 LAC [facility] [place]-[id number]) Pain Reassessment Is this a pain reassessment? No Sleep Is patient sleeping during reassessment? Yes Pain Scale Used Pain Scale Used Numeric Description Intensity of Pain at present 10 Sodium Chloride (Sodium Chloride 0.9%) 1,000 mls @ 999 mls/hr IV .Q1H1M STA Stop: 12/17/17 22:36 Last Admin: 12/17/17 22:46 Dose: 999 mls/hr eMAR Start Stop Document 12/17/17 22:46 LAC (Rec: 12/17/17 22:47 LAC [facility] [place]-[id number]) Intravenous Solution Start Date 12/17/17 Start Time 22:47 End Date 12/17/17 End time 23:47 Total Infusion Time 60 Metoclopramide HCl (Reglan) 10 mg IVP STAT STA Stop: 12/17/17 21:37 Last Admin: 12/17/17 22:46 Dose: 10 mg IVP Administration Document 12/17/17 22:46 LAC (Rec: 12/17/17 22:46 LAC [facility] [place]-[id number]) Charges for Administration # of IVP Administrations 1 - Scribe Statement The provider has reviewed the documentation as recorded by the Scribe Darrion Morales All medical record entries made by the Scribe were at my direction and personally dictated by me. I have reviewed the chart and agree that the record accurately reflects my personal performance of the history, physical exam, medical decision making, and the department course for this patient. I have also personally directed, reviewed, and agree with the discharge instructions and disposition. Disposition/Present on Arrival - Present on Arrival Any Indicators Present on Arrival: No History of DVT/PE: No History of Uncontrolled Diabetes: No Urinary Catheter: No History of Decub. Ulcer: No History Surgical Site Infection Following: None - Disposition Have Diagnosis and Disposition been Completed?: Yes Diagnosis: Tension headache Disposition: HOME/ ROUTINE Disposition Time: 23:34 Patient Plan: Discharge Condition: STABLE Discharge Instructions (ExitCare): Tension Headache (DC), Headache, Adult (DC) Referrals: Otis Pacheco MD [Primary Care Provider] - Follow up with primary Forms: [facility] ([place]), WORK NOTE
[2017-12-17 23:16] LABS: PH,URINE 6.5 (4.7-8.0); URINE BILIRUBIN NEGATIVE (NEGATIVE); URINE BLOOD NEGATIVE (NEGATIVE); URINE GLUCOSE (UA) NEGATIVE (NEGATIVE); URINE LEUKOCYTE ESTERASE NEGATIVE Leu/uL (NEGATIVE); URINE PROTEIN NEGATIVE mg/dL (<30 mg/dL); URINE UROBILINOGEN 0.2 E.U./dL (<1 E.U./dL)
[2017-12-17 23:30] LABS: URINE APPEARANCE CLEAR (CLEAR); URINE COLOR YELLOW (YELLOW)
[2017-12-18 00:53] VITALS: BP 121/75; PULSE 88; TEMP 98.2; O2SAT 98
--- NOTE | 2017-12-18 08:53 | CT ---
Date of service: 12/17/2017 PROCEDURE: CT HEAD WITHOUT CONTRAST. HISTORY: headache COMPARISON: 11/04/2016 TECHNIQUE: Axial computed tomography images were obtained through the head/brain without intravenous contrast. Radiation dose: Total exam DLP = 1198.31 mGy-cm. This CT exam was performed using one or more of the following dose reduction techniques: Automated exposure control, adjustment of the mA and/or kV according to patient size, and/or use of iterative reconstruction technique. FINDINGS: HEMORRHAGE: No intracranial hemorrhage. BRAIN: No mass effect or edema. No atrophy or chronic microvascular ischemic changes. VENTRICLES: Unremarkable. No hydrocephalus. CALVARIUM: Unremarkable. PARANASAL SINUSES: Unremarkable as visualized. No significant inflammatory changes. MASTOID AIR CELLS: Unremarkable as visualized. No inflammatory changes. OTHER FINDINGS: None. IMPRESSION: Normal CT of the Head. The preliminary findings for this examination were reported by [facility] at 11:30 p.m. on 12/17/2017. There is concurrence of this report with the preliminary findings.
== END 2017-12-18 00:01 | disposition home or self-care (01) ==
LOC: ED 20:30
DX: G44.209 Tension-type headache, unspecified, not intractable (principal); I10 Essential (primary) hypertension
CPT/HCPCS: 70450; 81003; 96361; 96374; 99285; J2765; J7030

== ENCOUNTER 2018-04-23 14:03 | Observation (INO) | payer OTHER ==
[2018-04-23 14:03] VITALS: BMI 36.3
[2018-04-23 15:36] LABS: BASO # 0.01 K/mm3 (0.0-2.0); BASO % 0.1 % (0.0-3.0); EOS # 0.2 (0.0-0.7); EOS % 2.4 % (1.5-5.0); GRAN # 3.47 (1.4-6.5); HEMOGLOBIN 12.5 g/dL (12.0-16.0); LYMPH # 3.2 (1.2-3.4); LYMPH % 43.8 % (22.0-35.0); MEAN CELL VOLUME 84.8 fl (80.0-105.0); MEAN CORPUSCULAR HEMOGLOBIN 26.8 pg (25.0-35.0); MEAN CORPUSCULAR HGB CONC 31.6 g/dl (31.0-37.0); MEAN PLATELET VOLUME 9.1 fl (7.0-11.0); MONO # 0.4 (0.1-0.6); MONO % 5.7 % (1.0-6.0); RBC 4.67 10^6/uL (3.5-6.1); RED CELL DISTRIBUTION WIDTH 17.6 % (11.5-14.5); WHITE BLOOD COUNT 7.2 10^3/uL (4.5-11.0)
[2018-04-23 15:56] LABS: URINE BILIRUBIN NEGATIVE (NEGATIVE); URINE BLOOD NEGATIVE (NEGATIVE); URINE GLUCOSE (UA) NEGATIVE (NEGATIVE); URINE LEUKOCYTE ESTERASE NEGATIVE Leu/uL (NEGATIVE); URINE PROTEIN NEGATIVE mg/dL (<30 mg/dL); URINE UROBILINOGEN 0.2 E.U./dL (<1 E.U./dL)
[2018-04-23 15:57] LABS: INR 1.03; PARTIAL THROMBOPLASTIN TIME 31.4 Seconds (26.9-38.3); PROTHROMBIN TIME 11.4 SECONDS (9.4-12.5)
[2018-04-23 15:58] LABS: URINE APPEARANCE CLEAR (CLEAR); URINE COLOR STRAW (YELLOW)
[2018-04-23 16:00] LABS: ALBUMIN 4.6 g/dL (3.0-4.8); ALT/SGPT 31 U/L (7-56); AST/SGOT 44 U/L (14-36); BLOOD UREA NITROGEN 12 mg/dL (7-21); CALCIUM 9.8 mg/dL (8.4-10.5); GFR NON-AFRICAN AMERICAN > 60
[2018-04-23 16:09] LABS: TROPONIN I < 0.01 ng/mL
[2018-04-23 16:36] LABS: BARBITURATES, UR NEGATIVE (NEGATIVE); BENZODIAZEPINES, UR NEGATIVE (NEGATIVE); OPIATES, UR NEGATIVE (NEGATIVE); PHENCYCLIDINE, UR NEGATIVE (NEGATIVE)
--- NOTE | 2018-04-23 17:16 | CT ---
Date of service: 04/23/2018 PROCEDURE: CT HEAD WITHOUT CONTRAST. HISTORY: headache COMPARISON: 12/17/2017 TECHNIQUE: Axial computed tomography images were obtained through the head/brain without intravenous contrast. Radiation dose: Total exam DLP = 761.3 mGy-cm. This CT exam was performed using one or more of the following dose reduction techniques: Automated exposure control, adjustment of the mA and/or kV according to patient size, and/or use of iterative reconstruction technique. FINDINGS: HEMORRHAGE: No intracranial hemorrhage. BRAIN: No mass effect or edema. No atrophy or chronic microvascular ischemic changes. VENTRICLES: Unremarkable. No hydrocephalus. CALVARIUM: Unremarkable. PARANASAL SINUSES: Unremarkable as visualized. No significant inflammatory changes. MASTOID AIR CELLS: Unremarkable as visualized. No inflammatory changes. OTHER FINDINGS: None. IMPRESSION: No acute findings
--- NOTE | 2018-04-23 17:33 | ED PDOC ---
Arrival/HPI - General Chief Complaint: Chest Pain Time Seen by Provider: 04/23/18 14:35 Historian: Patient - History of Present Illness Narrative History of Present Illness (Text): 04/23/18 17:40 42 year old female with PMH of hypertension, hyperlipidemia, and anxiety presents to the emergency department complaining of left sided chest and arm pain that began 1 hour [employer]. She began to have palpitations after having too much caffeine. She then took 1 tab of her Xanax and began to have left sided chest and shoulder pain. Denies injury to left shoulder. States she has had panic attacks in the past but they have never felt like this. Pt does not have a hall coordinator and has never had a cardiac workup. Also states she has been feeling "off balance" for the last few weeks that sometimes makes her feel as if she may faint. Denies fevers, chills, cough, sinus congestion, abdominal pain, nausea, vomiting, SOB, numbness, weakness, paresthesias, or any other associated symptoms. Past Medical History - Provider Review Nursing Documentation Reviewed: Yes - Infectious Disease Hx of Infectious Diseases: None - Cardiac Hx Cardiac Disorders: Yes Hx Hypertension: Yes - Pulmonary Hx Respiratory Disorders: No - Neurological Hx Neurological Disorder: No - HEENT Hx HEENT Disorder: No - Renal Hx Renal Disorder: No - Endocrine/Metabolic Hx Endocrine Disorders: No - Hematological/Oncological Hx Blood Disorders: No - Integumentary Hx Dermatological Disorder: No - Musculoskeletal/Rheumatological Hx Musculoskeletal Disorders: No - Gastrointestinal Hx Gastrointestinal Disorders: No - Genitourinary/Gynecological Hx Genitourinary Disorders: No - Psychiatric Hx Anxiety: Yes Hx Substance Use: No - Surgical History Hx Orthopedic Surgery: Yes Other/Comment: Gastric sleeve 09/2017 - Anesthesia Hx Anesthesia: No - Suicidal Assessment Feels Threatened In Home Enviroment: No Family/Social History - Physician Review Nursing Documentation Reviewed: Yes Family/Social History: No Known Family HX Smoking Status: Never Smoked Hx Alcohol Use: Yes Hx Substance Use: No Allergies/Home Meds Allergies/Adverse Reactions: Allergies No Known Allergies Allergy (Verified 04/23/18 14:36) Home Medications: Home Meds Medication Instructions Recorded Confirmed Alprazolam [Xanax] 0.5 mg PO PRN PRN 04/23/18 04/23/18 Atorvastatin [Lipitor] 20 mg PO DAILY 04/23/18 04/23/18 Ketoconazole 2% Shampoo [Nizoral] 120 ml .ROUTE DAILY 04/23/18 04/23/18 Review of Systems - Physician Review All systems were reviewed & negative as marked: Yes - Review of Systems Constitutional: Normal. absent: Fevers Eyes: Normal. absent: Vision Changes ENT: Normal. absent: Sore Throat, Sinus Congestion Respiratory: Normal. absent: SOB, Cough Cardiovascular: Chest Pain, Palpitations Gastrointestinal: Normal. absent: Abdominal Pain, Stool Changes, Nausea, Vomiting, Appetite Changes Genitourinary Female: Normal. absent: Dysuria, Frequency, Vaginal Bleeding, Vaginal Discharge Musculoskeletal: Normal. absent: Back Pain Skin: Normal. absent: Rash, Cellulitis Neurological: Normal. absent: Headache, Dizziness Endocrine: Normal Hemo/Lymphatic: Normal Psychiatric: Anxiety Physical Exam Vital Signs Reviewed: Yes Vital Signs Temp Pulse Resp BP Pulse Ox 04/23/18 14:55 98.1 F 64 18 140/93 H 99 Temperature: Afebrile Blood Pressure: Hypertensive Pulse: Regular Respiratory Rate: Normal Appearance: Positive for: Well-Appearing, Non-Toxic, Comfortable Pain Distress: None Mental Status: Positive for: Alert and Oriented X 3 - Systems Exam Head: Present: Atraumatic, Normocephalic Pupils: Present: PERRL Extroacular Muscles: Present: EOMI Conjunctiva: Present: Normal Mouth: Present: Moist Mucous Membranes Neck: Present: Normal Range of Motion. No: MIDLINE TENDERNESS, Paraspinal Tenderness, Lymphadenopathy Respiratory/Chest: Present: Clear to Auscultation, Good Air Exchange. No: Respiratory Distress, Accessory Muscle Use Cardiovascular: Present: Regular Rate and Rhythm, Normal S1, S2, Peripheal Pulses Present. No: Murmurs Abdomen: Present: Normal Bowel Sounds. No: Tenderness, Distention, Peritoneal Signs, Rebound, Guarding Back: Present: Normal Inspection. No: CVA Tenderness, Paraspinal Tenderness Upper Extremity: Present: Normal Inspection, Normal ROM, NORMAL PULSES, Neurovascularly Intact, Capillary Refill < 2s. No: Cyanosis, Edema, Tenderness, Temperature Abnormalties Lower Extremity: Present: Normal Inspection, NORMAL PULSES, Normal ROM, Neurovascularly Intact, Capillary Refill < 2 s. No: Edema, Temperature Abnormalties Neurological: Present: GCS=15, CN II-XII Intact, Speech Normal, Motor Func Grossly Intact, Normal Sensory Function, Normal Cerebellar Funct, Gait Normal, Memory Normal Skin: Present: Warm, Dry, Normal Color. No: Rashes Lymphatic: No: Cervical Adenopathy Psychiatric: Present: Alert, Oriented x 3, Normal Insight, Normal Concentration, Normal Affect, Anxious Medical Decision Making ED Course and Treatment: Initial Plan: * CBC, CMP * Coags * Mg, Phos * Cardiac Iso * EKG * CXR * Head CT * IVF * ASA Labwork unremarkable CXR shows no active disease EKG is Rate 66; NSR; Normal Intervals; No STEMI, nonspecific ST/T wave changes Initial troponin negative Head CT unremarkable [address] Dumont who accepted patient for remote telemetry observation for chest pain. Patient made aware of change in disposition. Resting comfortably in stretcher with no complaints at this time. Vital signs stable. - Lab Interpretations Lab Results: PT 11.4 SECONDS (9.4-12.5) 04/23/18 15:17 INR 1.03 04/23/18 15:17 APTT 31.4 Seconds (26.9-38.3) 04/23/18 15:17 Troponin I < 0.01 ng/mL 04/23/18 15:17 Total Bilirubin 0.7 mg/dL (0.2-1.3) 04/23/18 15:17 AST 44 U/L (14-36) H D 04/23/18 15:17 ALT 31 U/L (7-56) 04/23/18 15:17 Alkaline Phosphatase 74 U/L (38-126) 04/23/18 15:17 Total Protein 9.1 g/dL (5.8-8.3) H 04/23/18 15:17 Albumin 4.6 g/dL (3.0-4.8) 04/23/18 15:17 Globulin 4.5 gm/dL 04/23/18 15:17 Albumin/Globulin Ratio 1.0 (1.1-1.8) L 04/23/18 15:17 Urine Color Straw (YELLOW) 04/23/18 15:17 Urine Appearance Clear (CLEAR) 04/23/18 15:17 Urine pH 6.0 (4.7-8.0) 04/23/18 15:17 Ur Specific [place] <= 1.005 (1.005-1.035) 04/23/18 15:17 Urine Protein Negative mg/dL (<30 mg/dL) 04/23/18 15:17 Urine Glucose (UA) Negative mg/dL (NEGATIVE) 04/23/18 15:17 Urine Ketones Negative mg/dL (NEGATIVE) 04/23/18 15:17 Urine Blood Negative (NEGATIVE) 04/23/18 15:17 Urine Nitrate Negative (NEGATIVE) 04/23/18 15:17 Urine Bilirubin Negative (NEGATIVE) 04/23/18 15:17 Urine Urobilinogen 0.2 E.U./dL (<1 E.U./dL) 04/23/18 15:17 Ur Leukocyte Esterase Negative Caryn/uL (NEGATIVE) 04/23/18 15:17 04/23/18 15:17 04/23/18 15:17 Lab Results 04/23/18 16:00: Urine Opiates Screen Negative, Urine Methadone Screen Negative, Ur Barbiturates Screen Negative, Ur Phencyclidine Scrn Negative, Ur Amphetamines Screen Negative, U Benzodiazepines Scrn Negative, U Oth Cocaine Metabols Negative, U Cannabinoids Screen Negative 04/23/18 15:17: Sodium 140, Potassium 4.2, Chloride 103, Carbon Dioxide 28, Anion Gap 13, BUN 12, Creatinine 0.8, Est GFR ( Amer) > 60, Est GFR (Non- Af Amer) > 60, Random Glucose 94, Calcium 9.8, Magnesium 1.7, Total Bilirubin 0.7, AST 44 H D, ALT 31, Alkaline Phosphatase 74, Lactate Dehydrogenase 572, Total Creatine Kinase 91, Troponin I < 0.01, Total Protein 9.1 H, Albumin 4.6, Globulin 4.5, Albumin/Globulin Ratio 1.0 L 04/23/18 15:17: Urine Color Straw, Urine Appearance Clear, Urine pH 6.0, Ur Specific [place] <= 1.005, Urine Protein Negative, Urine Glucose (UA) Negative, Urine Ketones Negative, Urine Blood Negative, Urine Nitrate Negative, Urine Bilirubin Negative, Urine Urobilinogen 0.2, Ur Leukocyte Esterase Negative 04/23/18 15:17: PT 11.4, INR 1.03, APTT 31.4 04/23/18 15:17: WBC 7.2, RBC 4.67, Hgb 12.5, Hct 39.6, MCV 84.8, MCH 26.8, MCHC 31.6, RDW 17.6 H, Plt Count 409, MPV 9.1, Gran % 48.0 L, Lymph % (Auto) 43.8 H, [place] % (Auto) 5.7, Eos % (Auto) 2.4, Baso % (Auto) 0.1, Gran # 3.47, Lymph # (Auto) 3.2, [place] # (Auto) 0.4, Eos # (Auto) 0.2, Baso # (Auto) 0.01 I have reviewed the lab results: Yes - RAD Interpretation Narrative RAD Interpretations (Text): 04/23/18 17:48 CXR FINDINGS: Examination limited by habitus. LUNGS: No focal consolidation. Please note that chest x-ray has limited sensitivity for the detection of pulmonary masses. PLEURA: No significant pleural effusion identified. No definite pneumothorax . CARDIOVASCULAR: Heart size appears within normal limits. No significant atherosclerotic calcification present. OSSEOUS STRUCTURES: No acute osseous abnormality identified. VISUALIZED UPPER ABDOMEN: Unremarkable. OTHER FINDINGS: None. IMPRESSION: No focal consolidation. Head CT: FINDINGS: HEMORRHAGE: No intracranial hemorrhage. BRAIN: No mass effect or edema. No atrophy or chronic microvascular ischemic changes. VENTRICLES: Unremarkable. No hydrocephalus. CALVARIUM: Unremarkable. PARANASAL SINUSES: Unremarkable as visualized. No significant inflammatory changes. MASTOID AIR CELLS: Unremarkable as visualized. No inflammatory changes. OTHER FINDINGS: None. IMPRESSION: No acute findings Radiology Orders: 04/23/18 14:40 CHEST PORTABLE [RAD] Stat 04/23/18 14:42 HEAD W/O CONTRAST [CT] Stat - EKG Interpretation EKG Interpretation (Text): 04/23/18 17:48 Rate 66; NSR; Normal Intervals; No STEMI, nonspecific ST/T wave changes Interpreted by ED Physician: Yes Type: 12 lead EKG - Medication Orders Current Medication Orders: Discontinued Medications Aspirin (Aspirin) 325 mg PO STAT STA Stop: 04/23/18 14:41 Last Admin: 04/23/18 15:34 Dose: 325 mg Disposition/Present on Arrival - Present on Arrival Any Indicators Present on Arrival: No History of DVT/PE: No History of Uncontrolled Diabetes: No Urinary Catheter: No History of Decub. Ulcer: No History Surgical Site Infection Following: None - Disposition Have Diagnosis and Disposition been Completed?: Yes Diagnosis: Chest pain, Anxiety Disposition: HOSPITALIZED Disposition Time: 18:10 Patient Plan: Admission Patient Problems: Current Active Problems Problem Status Onset Anxiety Acute Chest pain Acute Condition: STABLE
--- NOTE | 2018-04-23 17:47 | RAD ---
HISTORY: chest pain COMPARISON: Chest x-ray performed 03/27/16, CTA chest performed 10/08/17 TECHNIQUE: Chest, one view. FINDINGS: Examination limited by habitus. LUNGS: No focal consolidation. Please note that chest x-ray has limited sensitivity for the detection of pulmonary masses. PLEURA: No significant pleural effusion identified. No definite pneumothorax . CARDIOVASCULAR: Heart size appears within normal limits. No significant atherosclerotic calcification present. OSSEOUS STRUCTURES: No acute osseous abnormality identified. VISUALIZED UPPER ABDOMEN: Unremarkable. OTHER FINDINGS: None. IMPRESSION: No focal consolidation.
--- NOTE | 2018-04-23 18:36 | CP.PCM.HP ---
<Stanislav Umana - Last Filed: 04/23/18 21:02> History of Present Illness - History of Present Illness History of Present Illness: Stanislav Umana, PGY1 H&P for Dr. Pagan cc: chest pain with associated neck pain Patient is a 42 year old female with PMH of hypertension, anxiety, and migraines who presented to the emergency department complaining of left sided chest with associated neck pain x3 weeks in duration. Patient denied trauma or injury to the area. She said that she had this pain for about 3 weeks in duration. She does not follow up with a senior mobile developer. Patient also mentioned that she has some unsteadiness of gait for a few weeks in duration. In the ED, Patient's vitals: Temp 98, HR 64, BP 140/93, and SaO2 99% on room air. Patient mentioned that her chest pain was for x3 weeks in duration. However, today it felt worse. After receiving aspirin in the ED, she said the pain went from a 6/10 to a 2/10. On further questioning, patient says she is a very anxious person and has been joann ling with emotional stresses lately. 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 Chest pain improves with movement of her arms. Denies sob, lightheadedness, dizziness, falls, lower extremity pain, nausea, vomiting, cough, diarrhea. She has history of a recent gastric sleeve for which she has followed up for in January. As a result, she has lost significant weight from her procedure. A full 12 point ROS was conducted and unremarkable except as stated above. PMD: [place] PMHx: HTN, Anxiety, Migraines PSHx: Gastric sleeve (09/2017) Meds: norvasc 5mg daily, Lipitor 20mg PO daily, Xanax 0.5 mg prn, Nizoral 120 ml daily Allergies: NKDA SocialHx: denies smoking, drinking, recreational drug use. 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 FamHx: no premature cardiac events Present on Admission - Present on Admission Any Indicators Present on Admission: No Review of Systems - Review of Systems All systems: reviewed and no additional remarkable complaints except (as per HPI.) Past Patient History - Infectious Disease Hx of Infectious Diseases: None - Past Social History Smoking Status: Never Smoked - CARDIAC Hx Cardiac Disorders: Yes Hx Hypertension: Yes - PULMONARY Hx Respiratory Disorders: No - NEUROLOGICAL Hx Neurological Disorder: No - HEENT Hx HEENT Problems: No - RENAL Hx Chronic Kidney Disease: No - ENDOCRINE/METABOLIC Hx Endocrine Disorders: No - HEMATOLOGICAL/ONCOLOGICAL Hx Blood Disorders: No - INTEGUMENTARY Hx Dermatological Problems: No - MUSCULOSKELETAL/RHEUMATOLOGICAL Hx Musculoskeletal Disorders: No - GASTROINTESTINAL Hx Gastrointestinal Disorders: No - GENITOURINARY/GYNECOLOGICAL Hx Genitourinary Disorders: No - PSYCHIATRIC Hx Anxiety: Yes Hx Substance Use: No - SURGICAL HISTORY Hx Orthopedic Surgery: Yes Other/Comment: Gastric sleeve 09/2017 - ANESTHESIA Hx Anesthesia: No Meds Allergies/Adverse Reactions: Allergies Allergy/AdvReac Type Severity Reaction Status Date / Time No Known Allergies Allergy Verified 04/23/18 14:36 Physical Exam - Constitutional Appears: No Acute Distress - Head Exam Head Exam: ATRAUMATIC, NORMAL INSPECTION, NORMOCEPHALIC - Eye Exam Eye Exam: EOMI, Normal appearance Pupil Exam: NORMAL ACCOMODATION - Neck Exam Additional comments: Negative Spurling and Adson's tests for cervical radiculopathy. - Respiratory Exam Respiratory Exam: Clear to Auscultation Bilateral, NORMAL BREATHING PATTERN. absent: Accessory Muscle Use, Rales, Rhonchi, Wheezes, Respiratory Distress, Stridor - Cardiovascular Exam Cardiovascular Exam: RRR, +S1, +S2 Additional comments: No chest wall tenderness to palpation. - GI/Abdominal Exam GI & Abdominal Exam: Normal Bowel Sounds, Soft. absent: Tenderness Additional comments: Scars from gastric sleeve surgery. - Extremities Exam Extremities exam: Positive for: full ROM, normal capillary refill, normal inspection, pedal pulses present. Negative for: calf tenderness, pedal edema, tenderness Additional comments: 5/5 motor strength in b/l low ext. Sensation is in tact in b/l low ext. - Neurological Exam Neurological exam: Alert, CN II-XII Intact, Normal Gait, Oriented x3, Reflexes Normal - Psychiatric Exam Psychiatric exam: Anxious - Skin Skin Exam: Dry, Intact, Normal Color, Warm Results - Vital Signs Recent Vital Signs: Last Vital Signs Temp 98.1 F 04/23/18 14:55 Pulse 64 04/23/18 14:55 Resp 18 04/23/18 14:55 BP 140/93 H 01/22/19 14:55 Pulse Ox 99 04/23/18 14:55 - Labs Result Diagrams: 04/23/18 15:17 04/23/18 15:17 Labs: Laboratory Results - last 24 hr 04/23/18 04/23/18 04/23/18 15:17 15:17 15:17 WBC 7.2 RBC 4.67 Hgb 12.5 Hct 39.6 MCV 84.8 MCH 26.8 MCHC 31.6 RDW 17.6 H Plt Count 409 MPV 9.1 Gran % 48.0 L Lymph % (Auto) 43.8 H [place] % (Auto) 5.7 Eos % (Auto) 2.4 Baso % (Auto) 0.1 Gran # 3.47 Lymph # (Auto) 3.2 [place] # (Auto) 0.4 Eos # (Auto) 0.2 Baso # (Auto) 0.01 PT 11.4 INR 1.03 APTT 31.4 Sodium Potassium Chloride Carbon Dioxide Anion Gap BUN Creatinine Est GFR ( Amer) Est GFR (Non-Af Amer) Random Glucose Calcium Magnesium Total Bilirubin AST ALT Alkaline Phosphatase Lactate Dehydrogenase Total Creatine Kinase Troponin I Total Protein Albumin Globulin Albumin/Globulin Ratio Urine Color Straw Urine Appearance Clear Urine pH 6.0 Ur Specific [place] <= 1.005 Urine Protein Negative Urine Glucose (UA) Negative Urine Ketones Negative Urine Blood Negative Urine Nitrate Negative Urine Bilirubin Negative Urine Urobilinogen 0.2 Ur Leukocyte Esterase Negative Urine Opiates Screen Urine Methadone Screen Ur Barbiturates Screen Ur Phencyclidine Scrn Ur Amphetamines Screen U Benzodiazepines Scrn U Oth Cocaine Metabols U Cannabinoids Screen 04/23/18 04/23/18 15:17 16:00 WBC RBC Hgb Hct MCV MCH MCHC RDW Plt Count MPV Gran % Lymph % (Auto) [place] % (Auto) Eos % (Auto) Baso % (Auto) Gran # Lymph # (Auto) [place] # (Auto) Eos # (Auto) Baso # (Auto) PT INR APTT Sodium 140 Potassium 4.2 Chloride 103 Carbon Dioxide 28 Anion Gap 13 BUN 12 Creatinine 0.8 Est GFR ( Amer) > 60 Est GFR (Non-Af Amer) > 60 Random Glucose 94 Calcium 9.8 Magnesium 1.7 Total Bilirubin 0.7 AST 44 H D ALT 31 Alkaline Phosphatase 74 Lactate Dehydrogenase 572 Total Creatine Kinase 91 Troponin I < 0.01 Total Protein 9.1 H Albumin 4.6 Globulin 4.5 Albumin/Globulin Ratio 1.0 L Urine Color Urine Appearance Urine pH Ur Specific [place] Urine Protein Urine Glucose (UA) Urine Ketones Urine Blood Urine Nitrate Urine Bilirubin Urine Urobilinogen Ur Leukocyte Esterase Urine Opiates Screen Negative Urine Methadone Screen Negative Ur Barbiturates Screen Negative Ur Phencyclidine Scrn Negative Ur Amphetamines Screen Negative U Benzodiazepines Scrn Negative U Oth Cocaine Metabols Negative U Cannabinoids Screen Negative Assessment & Plan - Assessment and Plan (Free Text) Assessment: Patient is a 42 year old female with PMH of hypertension, anxiety, and migraines who presented to the emergency department complaining of left sided chest with associated neck pain x3 weeks in duration. Patient will be admitted for unspecified chest pain. Plan: Unspecified Chest Pain 2/2 Anxiety vs Musculoskeletal Origin - first trop was negative in ED; trend serial troponin - TSH - A1c - Lipid panel - xanax 0.25 mg PO for anxiety hx and recent emotional stressors - Tylenol q6 prn for pain - EKG: NSR at 66 bpm. Non-specific changes. - Urine drug screen negative - CXR: no consolidation, infiltrate, or active cardiopulm disease Neck Pain - will obtain CT cervical spine w/o contrast Unsteady Gait - PT eval - No associated fall on history - Neurological exam and physical exam wnl GI: HHD DVT ppx: SCDs Dispo: Monitor patient on the floor. Case was discussed and reviewed with Attending Physician, Dr. Pagan <Shanita Pagan - Last Filed: 04/23/18 22:21> Results - Vital Signs Recent Vital Signs: Last Vital Signs Temp 98 F 04/23/18 21:16 Pulse 70 04/23/18 21:16 Resp 18 04/23/18 21:16 BP 130/85 04/23/18 21:16 Pulse Ox 98 04/23/18 21:16 - Labs Result Diagrams: 04/23/18 15:17 04/23/18 15:17 Labs: Laboratory Results - last 24 hr 04/23/18 04/23/18 04/23/18 15:17 15:17 15:17 WBC 7.2 RBC 4.67 Hgb 12.5 Hct 39.6 MCV 84.8 MCH 26.8 MCHC 31.6 RDW 17.6 H Plt Count 409 MPV 9.1 Gran % 48.0 L Lymph % (Auto) 43.8 H [place] % (Auto) 5.7 Eos % (Auto) 2.4 Baso % (Auto) 0.1 Gran # 3.47 Lymph # (Auto) 3.2 [place] # (Auto) 0.4 Eos # (Auto) 0.2 Baso # (Auto) 0.01 PT 11.4 INR 1.03 APTT 31.4 Sodium Potassium Chloride Carbon Dioxide Anion Gap BUN Creatinine Est GFR ( Amer) Est GFR (Non-Af Amer) Random Glucose Calcium Magnesium Total Bilirubin AST ALT Alkaline Phosphatase Lactate Dehydrogenase Total Creatine Kinase Troponin I Total Protein Albumin Globulin Albumin/Globulin Ratio Triglycerides Cholesterol HDL Cholesterol Free T4 TSH 3rd Generation Urine Color Straw Urine Appearance Clear Urine pH 6.0 Ur Specific [place] <= 1.005 Urine Protein Negative Urine Glucose (UA) Negative Urine Ketones Negative Urine Blood Negative Urine Nitrate Negative Urine Bilirubin Negative Urine Urobilinogen 0.2 Ur Leukocyte Esterase Negative Urine Opiates Screen Urine Methadone Screen Ur Barbiturates Screen Ur Phencyclidine Scrn Ur Amphetamines Screen U Benzodiazepines Scrn U Oth Cocaine Metabols U Cannabinoids Screen 04/23/18 04/23/18 04/23/18 15:17 16:00 19:00 WBC RBC Hgb Hct MCV MCH MCHC RDW Plt Count MPV Gran % Lymph % (Auto) [place] % (Auto) Eos % (Auto) Baso % (Auto) Gran # Lymph # (Auto) [place] # (Auto) Eos # (Auto) Baso # (Auto) PT INR APTT Sodium 140 Potassium 4.2 Chloride 103 Carbon Dioxide 28 Anion Gap 13 BUN 12 Creatinine 0.8 Est GFR ( Amer) > 60 Est GFR (Non-Af Amer) > 60 Random Glucose 94 Calcium 9.8 Magnesium 1.7 Total Bilirubin 0.7 AST 44 H D ALT 31 Alkaline Phosphatase 74 Lactate Dehydrogenase 572 Total Creatine Kinase 91 Troponin I < 0.01 Total Protein 9.1 H Albumin 4.6 Globulin 4.5 Albumin/Globulin Ratio 1.0 L Triglycerides Cholesterol HDL Cholesterol Free T4 1.20 TSH 3rd Generation 1.35 Urine Color Urine Appearance Urine pH Ur Specific [place] Urine Protein Urine Glucose (UA) Urine Ketones Urine Blood Urine Nitrate Urine Bilirubin Urine Urobilinogen Ur Leukocyte Esterase Urine Opiates Screen Negative Urine Methadone Screen Negative Ur Barbiturates Screen Negative Ur Phencyclidine Scrn Negative Ur Amphetamines Screen Negative U Benzodiazepines Scrn Negative U Oth Cocaine Metabols Negative U Cannabinoids Screen Negative 04/23/18 21:50 WBC RBC Hgb Hct MCV MCH MCHC RDW Plt Count MPV Gran % Lymph % (Auto) [place] % (Auto) Eos % (Auto) Baso % (Auto) Gran # Lymph # (Auto) [place] # (Auto) Eos # (Auto) Baso # (Auto) PT INR APTT Sodium Potassium Chloride Carbon Dioxide Anion Gap BUN Creatinine Est GFR ( Amer) Est GFR (Non-Af Amer) Random Glucose Calcium Magnesium Total Bilirubin AST ALT Alkaline Phosphatase Lactate Dehydrogenase Cancelled Total Creatine Kinase Cancelled Troponin I Total Protein Albumin Globulin Albumin/Globulin Ratio Triglycerides 78 Cholesterol 203 H HDL Cholesterol 69 H Free T4 TSH 3rd Generation Urine Color Urine Appearance Urine pH Ur Specific [place] Urine Protein Urine Glucose (UA) Urine Ketones Urine Blood Urine Nitrate Urine Bilirubin Urine Urobilinogen Ur Leukocyte Esterase Urine Opiates Screen Urine Methadone Screen Ur Barbiturates Screen Ur Phencyclidine Scrn Ur Amphetamines Screen U Benzodiazepines Scrn U Oth Cocaine Metabols U Cannabinoids Screen Attending/Attestation - Attestation I have personally seen and examined this patient.: Yes I have fully participated in the care of the patient.: Yes I have reviewed all pertinent clinical information: Yes Notes (Text): 04/23/18 22:12 Note: Nizoral mentioned in her medication list is a shampoo that pt uses at home. Pt seen with the resident by the bedside. Case discussed in detail. Agree with the resident's documentation,assessment and plan of treatment. 04/23/18 22:20
--- NOTE | 2018-04-23 20:14 | CARD ---
APPROVED REPORT Date of service: 04/23/2018 EKG Measurement Heart [id number] <Conclusion> Normal sinus rhythm Normal ECG
[2018-04-23] MEDS ORDERED: Menthol/Methyl Salicylate Ointment(1 oz) TOP SCH (20:30)
[2018-04-23 20:41] LABS: FREE T4 1.2 ng/dL (0.78-2.19)
[2018-04-23 22:08] LABS: HDL CHOLESTEROL 69 mg/dL (29-60)
[2018-04-23 22:19] LABS: LDL CHOLESTEROL 99 mg/dL (0-129)
[2018-04-23 22:28] LABS: TROPONIN I < 0.01 ng/mL
[2018-04-23 23:10] VITALS: RESP 20
[2018-04-24 06:55] LABS: BASO # 0.01 K/mm3 (0.0-2.0); BASO % 0.2 % (0.0-3.0); EOS # 0.2 (0.0-0.7); EOS % 2.3 % (1.5-5.0); GRAN # 2.01 (1.4-6.5); GRAN % 30.9 % (50.0-68.0); HEMOGLOBIN 12.1 g/dL (12.0-16.0); LYMPH # 3.9 (1.2-3.4); LYMPH % 59.8 % (22.0-35.0); MEAN CELL VOLUME 85.5 fl (80.0-105.0); MEAN CORPUSCULAR HEMOGLOBIN 27.1 pg (25.0-35.0); MEAN CORPUSCULAR HGB CONC 31.7 g/dl (31.0-37.0); MEAN PLATELET VOLUME 9.3 fl (7.0-11.0); MONO # 0.4 (0.1-0.6); MONO % 6.8 % (1.0-6.0); RBC 4.47 10^6/uL (3.5-6.1); RED CELL DISTRIBUTION WIDTH 17.6 % (11.5-14.5); WHITE BLOOD COUNT 6.5 10^3/uL (4.5-11.0)
[2018-04-24 07:43] LABS: BLOOD UREA NITROGEN 11 mg/dL (7-21); GFR NON-AFRICAN AMERICAN > 60
[2018-04-24 07:44] LABS: ALB/GLOB RATIO 1.1 (1.1-1.8); ALBUMIN 4.1 g/dL (3.0-4.8); CALCIUM 9.3 mg/dL (8.4-10.5)
[2018-04-24 07:45] LABS: ALT/SGPT 34 U/L (7-56); AST/SGOT 50 U/L (14-36); TROPONIN I < 0.01 ng/mL
[2018-04-24 08:19] VITALS: BP 108/69; PULSE 87; TEMP 98.1; O2SAT 97
[2018-04-24] MEDS ORDERED: Magnesium Sulfate 2 gm/50 ml 2 GM/50 ML BAG IVPB ONE (09:59)
--- NOTE | 2018-04-24 10:07 | CT ---
Date of service: 04/23/2018 PROCEDURE: CT Cervical Spine without contrast HISTORY: gait dysturbance, and neck pain with radiculopathy COMPARISON: None available. TECHNIQUE: Axial computed tomography images were obtained of the cervical spine without the use of intravenous contrast. Coronal and sagittal reformatted images were created and reviewed. Radiation dose: Total exam DLP = 579.92 mGy-cm. This CT exam was performed using one or more of the following dose reduction techniques: Automated exposure control, adjustment of the mA and/or kV according to patient size, and/or use of iterative reconstruction technique. FINDINGS: VERTEBRAE: No fracture. Normal alignment. No destructive bony lesion. DISCS/SPINAL CANAL/NEURAL FORAMINA: No significant central canal or neural foraminal stenosis. Discs heights are grossly preserved. PARASPINAL SOFT TISSUES: Unremarkable. OTHER FINDINGS: The report concurs with the preliminary [facility] report IMPRESSION: Unremarkable CT of the cervical spine.
--- NOTE | 2018-04-24 11:52 | CARD ---
APPROVED REPORT Date of service: 04/24/2018 EKG Measurement Heart [id number] <Conclusion> Sinus bradycardia Nonspecific T wave abnormality Abnormal ECG
[2018-04-24] MEDS ORDERED: Magnesium Oxide 400 mg Tab UD PO STA (13:10)
--- NOTE | 2018-04-24 14:28 | CP.PCM.DIS ---
<Maxi Frankel - Last Filed: 04/24/18 14:35> Provider - Provider Date of Admission: 04/23/18 18:10 Attending physician: Alejandro Dumont MD Primary care physician: Otis Pacheco MD Consults: 04/23/18 23:10 Inpatient HOSPICE EXECUTIVE DIRECTOR Core Measures Referral Routine Comment: Physician Instructions: Reason For Exam: PROTOCOL Transition In Care/Readmission Reduction Routine Comment: Physician Instructions: Reason For Exam: PROTOCOL 04/24/18 07:23 Consult [Physician Consult] Routine Comment: Consulting Provider: Darrion Macdonald Consulting Physician: Darrion Macdonald Reason for Consult: chest pain Time Spent in preparation of Discharge (in minutes): 45 Diagnosis - Discharge Diagnosis (1) Shoulder pain, left Status: Chronic (2) Anxiety Status: Chronic (3) Atypical chest pain Status: Resolved Hospital Course - Lab Results Lab Results: Most Recent Lab Values WBC 6.5 10^3/uL (4.5-11.0) 04/24/18 04:00 RBC 4.47 10^6/uL (3.5-6.1) 04/24/18 04:00 Hgb 12.1 g/dL (12.0-16.0) 04/24/18 04:00 Hct 38.2 % (36.0-48.0) 04/24/18 04:00 MCV 85.5 fl (80.0-105.0) 04/24/18 04:00 MCH 27.1 pg (25.0-35.0) 04/24/18 04:00 MCHC 31.7 g/dl (31.0-37.0) 04/24/18 04:00 RDW 17.6 % (11.5-14.5) H 04/24/18 04:00 Plt Count 377 10^3/uL (120.0-450.0) 04/24/18 04:00 MPV 9.3 fl (7.0-11.0) 04/24/18 04:00 Gran % 30.9 % (50.0-68.0) L 04/24/18 04:00 Lymph % (Auto) 59.8 % (22.0-35.0) H 04/24/18 04:00 Izard % (Auto) 6.8 % (1.0-6.0) H 04/24/18 04:00 Eos % (Auto) 2.3 % (1.5-5.0) 04/24/18 04:00 Baso % (Auto) 0.2 % (0.0-3.0) 04/24/18 04:00 Gran # 2.01 (1.4-6.5) 04/24/18 04:00 Lymph # (Auto) 3.9 (1.2-3.4) H 04/24/18 04:00 Izard # (Auto) 0.4 (0.1-0.6) 04/24/18 04:00 Eos # (Auto) 0.2 (0.0-0.7) 04/24/18 04:00 Baso # (Auto) 0.01 K/mm3 (0.0-2.0) 04/24/18 04:00 PT 11.4 SECONDS (9.4-12.5) 04/23/18 15:17 INR 1.03 04/23/18 15:17 APTT 31.4 Seconds (26.9-38.3) 04/23/18 15:17 Sodium 138 mmol/L (132-148) 04/24/18 04:00 Potassium 3.6 mmol/L (3.6-5.0) 04/24/18 04:00 Chloride 105 mmol/L (98-107) 04/24/18 04:00 Carbon Dioxide 26 mmol/L (21-33) 04/24/18 04:00 Anion Gap 11 (10-20) 04/24/18 04:00 BUN 11 mg/dL (7-21) 04/24/18 04:00 Creatinine 0.8 mg/dl (0.7-1.2) 04/24/18 04:00 Est GFR ( Amer) > 60 04/24/18 04:00 Est GFR (Non-Af Amer) > 60 04/24/18 04:00 Random Glucose 98 mg/dL (70-110) 04/24/18 04:00 Hemoglobin A1c 5.6 % (4.2-6.5) 04/23/18 19:00 Calcium 9.3 mg/dL (8.4-10.5) 04/24/18 04:00 Magnesium 1.6 mg/dL (1.7-2.2) L 04/24/18 04:00 Total Bilirubin 0.8 mg/dL (0.2-1.3) 04/24/18 04:00 AST 50 U/L (14-36) H 04/24/18 04:00 ALT 34 U/L (7-56) 04/24/18 04:00 Alkaline Phosphatase 66 U/L (38-126) 04/24/18 04:00 Lactate Dehydrogenase 572 U/L (333-699) 04/23/18 15:17 Total Creatine Kinase 91 U/L (35-230) 04/23/18 15:17 Troponin I < 0.01 ng/mL 04/24/18 09:15 Total Protein 7.9 g/dL (5.8-8.3) 04/24/18 04:00 Albumin 4.1 g/dL (3.0-4.8) 04/24/18 04:00 Globulin 3.8 gm/dL 04/24/18 04:00 Albumin/Globulin Ratio 1.1 (1.1-1.8) 04/24/18 04:00 Triglycerides 78 mg/dL (35-160) 04/23/18 21:50 Cholesterol 203 mg/dL (130-200) H 04/23/18 21:50 LDL Cholesterol Direct 99 mg/dL (0-129) 04/23/18 21:50 HDL Cholesterol 69 mg/dL (29-60) H 04/23/18 21:50 Free T4 1.20 ng/dL (0.78-2.19) 04/23/18 19:00 TSH 3rd Generation 1.35 mIU/mL (0.46-4.68) 04/23/18 19:00 Urine Color Straw (YELLOW) 04/23/18 15:17 Urine Appearance Clear (CLEAR) 04/23/18 15:17 Urine pH 6.0 (4.7-8.0) 04/23/18 15:17 Ur Specific Comstock <= 1.005 (1.005-1.035) 04/23/18 15:17 Urine Protein Negative mg/dL (<30 mg/dL) 04/23/18 15:17 Urine Glucose (UA) Negative mg/dL (NEGATIVE) 04/23/18 15:17 Urine Ketones Negative mg/dL (NEGATIVE) 04/23/18 15:17 Urine Blood Negative (NEGATIVE) 04/23/18 15:17 Urine Nitrate Negative (NEGATIVE) 04/23/18 15:17 Urine Bilirubin Negative (NEGATIVE) 04/23/18 15:17 Urine Urobilinogen 0.2 E.U./dL (<1 E.U./dL) 04/23/18 15:17 Ur Leukocyte Esterase Negative Caryn/uL (NEGATIVE) 04/23/18 15:17 Urine Opiates Screen Negative (NEGATIVE) 04/23/18 16:00 Urine Methadone Screen Negative (NEGATIVE) 04/23/18 16:00 Ur Barbiturates Screen Negative (NEGATIVE) 04/23/18 16:00 Ur Phencyclidine Scrn Negative (NEGATIVE) 04/23/18 16:00 Ur Amphetamines Screen Negative (NEGATIVE) 04/23/18 16:00 U Benzodiazepines Scrn Negative (NEGATIVE) 04/23/18 16:00 U Oth Cocaine Metabols Negative (NEGATIVE) 04/23/18 16:00 U Cannabinoids Screen Negative (NEGATIVE) 04/23/18 16:00 - Hospital Course Hospital Course: Upon Admission: 42 year old female with PMH of hypertension, anxiety, and migraines who presented to the emergency department complaining of left sided chest with associated neck pain x3 weeks in duration. Patient denied trauma or injury to the area. She said that she had this pain for about 3 weeks in duration. She does not follow up with a juke box servicer. Patient also mentioned that she has some unsteadiness of gait for a few weeks in duration. In the ED, Patient's vitals: Temp 98, HR 64, BP 140/93, and SaO2 99% on room air. Patient mentioned that her chest pain was for x3 weeks in duration. However, today it felt worse. After receiving aspirin in the ED, she said the pain went from a 6/10 to a 2/10. On further questioning, patient says she is a very anxious person and has been dealing with emotional stresses lately. 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 Chest pain improves with movement of her arms. Hospital Course: EKG revealed NSR with no ST/T waves changes. Chest xray revealed no active disease. Troponin x [address]erv[address] spine CT was negative. Pts symptoms had resolved the next morning. She reports she believed symptoms were related to her anxiety. Upon Discharge: Pt is feeling better. Vital signs are stable. Pt given detailed instructions of medication compliance, PMD followup and lifestyle modifications. Discharge Exam - Head Exam Head Exam: ATRAUMATIC, NORMAL INSPECTION, NORMOCEPHALIC - Eye Exam Eye Exam: EOMI, Normal appearance - ENT Exam ENT Exam: Mucous Membranes Moist, Normal Exam - Neck Exam Neck exam: Normal Inspection - Respiratory Exam Respiratory Exam: NORMAL BREATHING PATTERN, UNREMARKABLE - Cardiovascular Exam Cardiovascular Exam: REGULAR RHYTHM, +S1, +S2 - GI/Abdominal Exam GI & Abdominal Exam: Soft. absent: Tenderness - Extremities Exam Extremities exam: normal inspection - Back Exam Back exam: NORMAL INSPECTION - Neurological Exam Neurological exam: Alert, Oriented x3 - Psychiatric Exam Psychiatric exam: Normal Affect, Normal Mood - Skin Skin Exam: Dry, Intact, Warm Discharge Plan - Follow Up Plan Condition: STABLE Disposition: HOME/ ROUTINE Instructions: Anxiety, Adult (DC), Chest Pain (DC) Additional Instructions: Please follow up with your primary care doctor within 3-5 days of discharge from the hospital. Please discuss your medications with your doctor. Please resume the medications that you were taking previously Please return to the emergency department if your symptoms return or if you experience new symptoms Referrals: Otis Pacheco MD [Primary Care Provider] - Buster Del Cid DO [Medical Doctor] - <Alejandro Dumont - Last Filed: 04/25/18 15:07> Provider - Provider Date of Admission: 04/23/18 18:10 Attending physician: Alejandro Dumont MD Primary care physician: Otis Pacheco MD Consults: 04/23/18 23:10 Inpatient HOSPICE EXECUTIVE DIRECTOR Core Measures Referral Routine Comment: Physician Instructions: Reason For Exam: PROTOCOL Transition In Care/Readmission Reduction Routine Comment: Physician Instructions: Reason For Exam: PROTOCOL 04/24/18 07:23 Consult [Physician Consult] Routine Comment: Consulting Provider: Darrion Macdonald Consulting Physician: Darrion Macdonald Reason for Consult: chest pain Hospital Course - Lab Results Lab Results: Micro Results 04/23/18 15:17 Urine Random Urine Culture - Final 10-50,000 CFU/ML. MULTIPLE SPECIES. PROBABLE CONTAMINATION. Most Recent Lab Values WBC 6.5 10^3/uL (4.5-11.0) 04/24/18 04:00 RBC 4.47 10^6/uL (3.5-6.1) 04/24/18 04:00 Hgb 12.1 g/dL (12.0-16.0) 04/24/18 04:00 Hct 38.2 % (36.0-48.0) 04/24/18 04:00 MCV 85.5 fl (80.0-105.0) 04/24/18 04:00 MCH 27.1 pg (25.0-35.0) 04/24/18 04:00 MCHC 31.7 g/dl (31.0-37.0) 04/24/18 04:00 RDW 17.6 % (11.5-14.5) H 04/24/18 04:00 Plt Count 377 10^3/uL (120.0-450.0) 04/24/18 04:00 MPV 9.3 fl (7.0-11.0) 04/24/18 04:00 Gran % 30.9 % (50.0-68.0) L 04/24/18 04:00 Lymph % (Auto) 59.8 % (22.0-35.0) H 04/24/18 04:00 Izard % (Auto) 6.8 % (1.0-6.0) H 04/24/18 04:00 Eos % (Auto) 2.3 % (1.5-5.0) 04/24/18 04:00 Baso % (Auto) 0.2 % (0.0-3.0) 04/24/18 04:00 Gran # 2.01 (1.4-6.5) 04/24/18 04:00 Lymph # (Auto) 3.9 (1.2-3.4) H 04/24/18 04:00 Izard # (Auto) 0.4 (0.1-0.6) 04/24/18 04:00 Eos # (Auto) 0.2 (0.0-0.7) 04/24/18 04:00 Baso # (Auto) 0.01 K/mm3 (0.0-2.0) 04/24/18 04:00 PT 11.4 SECONDS (9.4-12.5) 04/23/18 15:17 INR 1.03 04/23/18 15:17 APTT 31.4 Seconds (26.9-38.3) 04/23/18 15:17 Sodium 138 mmol/L (132-148) 04/24/18 04:00 Potassium 3.6 mmol/L (3.6-5.0) 04/24/18 04:00 Chloride 105 mmol/L (98-107) 04/24/18 04:00 Carbon Dioxide 26 mmol/L (21-33) 04/24/18 04:00 Anion Gap 11 (10-20) 04/24/18 04:00 BUN 11 mg/dL (7-21) 04/24/18 04:00 Creatinine 0.8 mg/dl (0.7-1.2) 04/24/18 04:00 Est GFR ( Amer) > 60 04/24/18 04:00 Est GFR (Non-Af Amer) > 60 04/24/18 04:00 Random Glucose 98 mg/dL (70-110) 04/24/18 04:00 Hemoglobin A1c 5.6 % (4.2-6.5) 04/23/18 19:00 Calcium 9.3 mg/dL (8.4-10.5) 04/24/18 04:00 Magnesium 1.6 mg/dL (1.7-2.2) L 04/24/18 04:00 Total Bilirubin 0.8 mg/dL (0.2-1.3) 04/24/18 04:00 AST 50 U/L (14-36) H 04/24/18 04:00 ALT 34 U/L (7-56) 04/24/18 04:00 Alkaline Phosphatase 66 U/L (38-126) 04/24/18 04:00 Lactate Dehydrogenase 572 U/L (333-699) 04/23/18 15:17 Total Creatine Kinase 91 U/L (35-230) 04/23/18 15:17 Troponin I < 0.01 ng/mL 04/24/18 09:15 Total Protein 7.9 g/dL (5.8-8.3) 04/24/18 04:00 Albumin 4.1 g/dL (3.0-4.8) 04/24/18 04:00 Globulin 3.8 gm/dL 04/24/18 04:00 Albumin/Globulin Ratio 1.1 (1.1-1.8) 04/24/18 04:00 Triglycerides 78 mg/dL (35-160) 04/23/18 21:50 Cholesterol 203 mg/dL (130-200) H 04/23/18 21:50 LDL Cholesterol Direct 99 mg/dL (0-129) 04/23/18 21:50 HDL Cholesterol 69 mg/dL (29-60) H 04/23/18 21:50 Free T4 1.20 ng/dL (0.78-2.19) 04/23/18 19:00 TSH 3rd Generation 1.35 mIU/mL (0.46-4.68) 04/23/18 19:00 Urine Color Straw (YELLOW) 04/23/18 15:17 Urine Appearance Clear (CLEAR) 04/23/18 15:17 Urine pH 6.0 (4.7-8.0) 04/23/18 15:17 Ur Specific [place] <= 1.005 (1.005-1.035) 04/23/18 15:17 Urine Protein Negative mg/dL (<30 mg/dL) 04/23/18 15:17 Urine Glucose (UA) Negative mg/dL (NEGATIVE) 04/23/18 15:17 Urine Ketones Negative mg/dL (NEGATIVE) 04/23/18 15:17 Urine Blood Negative (NEGATIVE) 04/23/18 15:17 Urine Nitrate Negative (NEGATIVE) 04/23/18 15:17 Urine Bilirubin Negative (NEGATIVE) 04/23/18 15:17 Urine Urobilinogen 0.2 E.U./dL (<1 E.U./dL) 04/23/18 15:17 Ur Leukocyte Esterase Negative Caryn/uL (NEGATIVE) 04/23/18 15:17 Urine Opiates Screen Negative (NEGATIVE) 04/23/18 16:00 Urine Methadone Screen Negative (NEGATIVE) 04/23/18 16:00 Ur Barbiturates Screen Negative (NEGATIVE) 04/23/18 16:00 Ur Phencyclidine Scrn Negative (NEGATIVE) 04/23/18 16:00 Ur Amphetamines Screen Negative (NEGATIVE) 04/23/18 16:00 U Benzodiazepines Scrn Negative (NEGATIVE) 04/23/18 16:00 U Oth Cocaine Metabols Negative (NEGATIVE) 04/23/18 16:00 U Cannabinoids Screen Negative (NEGATIVE) 04/23/18 16:00 Attending/Attestation - Attestation I have personally seen and examined this patient.: Yes I have fully participated in the care of the patient.: Yes I have reviewed all pertinent clinical information, including history, physical exam and plan: Yes Notes (Text): 04/25/18 15:05 Attending note; Patient seen and examined with resident. Patient is alert and awake. Denies any chest pain, shortness of breath. Denies any dizziness. Complaining of nonspecific neck and musculoskeletal pain. Patient is a 42 year old female with PMH of hypertension, anxiety, and migraines who presented to the emergency department complaining of left sided chest with associated neck pain x3 weeks in duration. Patient denied trauma or injury to the area. She said that she had this pain for about 3 weeks in duration. 1. Atypical chest pain; patient is admitted to telemetry and monitored closely. Cardiac enzymes negative. EKG no acute ST-T changes. Cardiology evaluation appreciated. 2. Neck pain; CT neck is negative. Advised to continue Tylenol, hot compress and massages. 3.Anxiety; continue Xanax. follow up with psychiatrist as outpatient. Patient will be discharged home today. Follow-up with PMD Dr. Pacheco. Follow-up with cardiology Dr. Macdonald as needed.
--- NOTE | 2018-04-24 16:14 | CON ---
DATE: 04/24/2018 CARDIOLOGY CONSULTATION HISTORY: The patient is a 42-year-old woman with a history of hypertension, who presents with transient left shoulder pain. No chest pain was noted. The patient's cardiac risk factors includes hypercholesterolemia as well as hypertension, in which she is on Lipitor and Norvasc. She does take occasional Xanax for anxiety and palpitations. No previous cardiac workup is noted. Currently, the patient is chest pain-free. She is ambulating without issues. She denies diabetes mellitus. SOCIAL HISTORY: The patient does not smoke and she works at [employer]. REVIEW OF SYSTEMS: Fourteen-point review of systems is reviewed in detail. No other cardiac symptomatology is noted. PHYSICAL EXAMINATION: VITAL SIGNS: Blood pressure is 108/69, heart rates in the 80s. NECK: Negative JVD. LUNGS: Without rales. HEART: Reveal S1, S2. EXTREMITIES: Without edema. LABORATORY DATA: Laboratories include an EKG that shows normal sinus rhythm with nonspecific ST-T flattening. Hemoglobin is 12.1. Chemistries, BUN, and creatinine unremarkable. Troponins are negative times x4. IMPRESSION: 1. Atypical chest pain. 2. No evidence for acute coronary syndrome. 3. Hypertension. 4. Hypercholesterolemia. 5. Hypomagnesemia. Given these findings, we will replace her magnesium. I have discussed with the patient about the need to curtail her Xanax use. The patient is agreeable for an outpatient stress test, which we will arrange for discontinue telemetry today. Darrion Macdonald MD
== END 2018-04-24 16:32 | disposition home or self-care (01) ==
LOC: ED 14:03 → ERH 18:10 → INTOOBSV 18:10 → 3RNO 21:19
PROVIDERS: ADMIT Internal Medicine; ATTEND Internal Medicine
DX: R07.89 Other chest pain (principal); M25.512 Pain in left shoulder; I10 Essential (primary) hypertension; E78.00 Pure hypercholesterolemia, unspecified; E83.42 Hypomagnesemia; E78.5 Hyperlipidemia, unspecified
CPT/HCPCS: 36415; 70450; 71045; 72125; 80053; 80061; 80324; 80345; 80346; 80349; 80353; 80358; 80361; 81003; 81025; 82550; 83036; 83615; 83735; 83992; 84439; 84443; 84484; 85025; 85610; 85730; 87086; 93005; 96365; 96372; 97161; 97530; 99285; G0378; G8978; G8979; G8980; J1644